=== PATIENT | male | born 1940 | race Hispanic/Latino ===

== ENCOUNTER 2020-02-15 08:43 | Inpatient (IN) | payer MEDICARE ==
[~2020-02-15] VITALS: Ht 170.2 cm; Wt 75.7 kg
[2020-02-15 09:22] LABS: BASOPHILS # (AUTO) 0.1 (0.0-0.1); BASOPHILS % 0.5 % (0.0-1.0); EOSINOPHILS % 0.1 % (0.0-6.0); HEMATOCRIT 42.5 % (38.2-49.6); HEMOGLOBIN 14.4 g/dL (14.0-18.0); LYMPHOCYTES # (AUTO) 1.2 (1.0-3.2); LYMPHOCYTES % 10.8 % (18.0-39.1); MEAN CORPUSCULAR HGB CONC 33.9 g/dL (31-35); MEAN CORPUSCULAR VOLUME 82.7 fL (81-99); MONOCYTES % 8.5 % (4.4-11.3); NEUTROPHILS % 79.6 % (38.7-80.0); PLATELET COUNT 439 x10e3/uL (140-360); RED BLOOD COUNT 5.14 x10e6/uL (4.3-5.7); RED CELL DISTRIBUTION WIDTH 13.3 % (11.7-14.4)
[2020-02-15] MEDS ORDERED: MONTELUKAST SOD10 MG PO (09:31)
[2020-02-15] MEDS ORDERED: ULTRACET TABLE1 EACH PO (09:31)
[2020-02-15] MEDS ORDERED: SIMVASTATIN40 MG PO (09:31)
[2020-02-15] MEDS ORDERED: OMEPRAZOLE40 MG (09:31)
[2020-02-15] MEDS ORDERED: ALENDRONATE SOD70 MG PO (09:31)
[2020-02-15] MEDS ORDERED: FLOMAX0.4 MG PO (09:31)
[2020-02-15] MEDS ORDERED: IBUPROFEN600 MG PO (09:31)
[2020-02-15] MEDS ORDERED: DICLOFENAC SODI75 MG (09:31)
[2020-02-15] MEDS ORDERED: ALLERGY RELIEF10 M4 (09:31)
[2020-02-15] MEDS ORDERED: FLUTICASONE PRO16 GM (09:31)
[2020-02-15 09:47] LABS: ALANINE AMINOTRANSFERASE 15 IU/L (0-55); ALBUMIN 3.8 g/dL (3.5-5.0); ALKALINE PHOSPHATASE 83 IU/L (40-150); ANION GAP 14.4 mmol/L (8-16); BLOOD UREA NITROGEN 7 mg/dL (7-26); BUN/CREATININE RATIO 11 (6-25); CALCIUM 9.6 mg/dL (8.4-10.2); CARBON DIOXIDE 26 mmol/L (22-29); CHLORIDE 85 mmol/L (98-107); CREATINE KINASE 46 IU/L (30-200); CREATININE, SERUM 0.66 mg/dL (0.72-1.25); EST GLOMERULAR FILTRATION RATE > 60 ML/MIN (60-); GLUCOSE 101 mg/dL (74-118); POTASSIUM 4.4 mmol/L (3.5-5.1); SODIUM 121 mmol/L (136-145)
--- NOTE | 2020-02-15 10:04 | Diagnostic Imaging Report ---
Exam: Head CT without contrast History: Weakness, headache Comparison studies: None Technique: Axial images were obtained from the skull base to the vertex. Coronal and sagittal images reconstructed from the axial data. Dose modulation, iterative reconstruction, and/or weight based adjustment of the mA/kV was utilized to reduce the radiation dose to as low as reasonably achievable. Radiation dose: Total DLP: 921.4 mGy*cm. Estimated effective dose: DLP x 0.015 Intravenous contrast: None Findings: Scalp: No abnormalities. Bones: No fractures, blastic or lytic lesions. Brain sulci: Mildly prom. Ventricles: Mild compensatory dilatation. No hydrocephalus. Extra-axial spaces: No masses, no fluid collection. Parenchyma: No mass, acute hemorrhage or acute cortical vascular insults. A few scattered hypodensities in the supratentorial white matter are nonspecific but most compatible with chronic small vessel ischemic changes. Sellar/suprasellar region: No abnormalities. Craniocervical junction: Patent foramen magnum. No Chiari one malformation. Additional findings: Atherosclerotic calcifications in the carotid siphons. Nonspecific scattered mucosal thickening in the partially imaged paranasal sinuses. IMPRESSION: No acute intracranial abnormalities. Chronic findings: 1. Mild generalized parenchymal volume loss. 2. Mild microvascular ischemic changes. Signed by: Dr. Devin Swain M.D. on 02/15/2020 10:01 AM
[2020-02-15] MEDS ORDERED: SODIUM CHLORIDE 0.9% 1000ML 1,000 ML IV SCH ×2 (10:15)
--- OUTSIDE RECORDS SUMMARY | 2020-02-15 10:23 | XMS REPORT | Continuity of Care Document ---
Author Author [facility] t Organization [facility] Address [address] [place] [phone] Phone Unavailable Care Team Providers Care Tractor Trailer Truck Driver Name Role Phone Flo COLBERT Attphyflo Unavailable Problems This patient has no known problems. Allergies, Adverse Reactions, Alerts This patient has no known allergies or adverse reactions. Medications This patient has no known medications. Procedures This patient has no known procedures. Results Test Description Test Time Test Comments Results Result Comments Source CT BRAIN WO 2020-02-15 09:57:00 [place] [address] Patient Name: KAISER VELASQUEZ MR #: [id number] : 1940 Age/Sex: 80/M Req #: [id number] Adm Physician: Ordered by: LAURA COLBERT DO Report #: [id number] Location: ER Room/Bed: Procedure: [id number] CT/CT BRAIN WO Exam Date: Exam Time: REPORT STATUS: Signed Exam: Head CT without contrast History: Weakness, headache Comparison studies: None Technique: Axial images were obtained from the skull base to the vertex. Coronal and sagittal images reconstructed from the axial data. Dose modulation, iterative reconstruction, and/or weight based adjustment of the mA/kV was utilized to reduce the radiation dose to as low as reasonably achievable. Radiation dose: Total DLP: 921.4 mGy*cm. Estimated effective dose: DLP x 0.015 Intravenous contrast: None Findings: Scalp: No abnormalities. Bones: No fractures, blastic or lytic lesions. Brain sulci: Mildly prom. Ventricles: Mild compensatory dilatation. No hydrocephalus. Extra-axial spaces: No masses, no fluid collection. Parenchyma: No mass, acute hemorrhage or acute cortical vascular insults. A few scattered hypodensities in the supratentorial white matter are nonspecific but most compatible with chronic small vessel ischemic changes. Sellar/suprasellar region: No abnormalities. Craniocervical junction: Patent foramen magnum. No Chiari one malformation. Additional findings: Atherosclerotic calcifications in the carotid siphons. Nonspecific scattered mucosal thickening in the partially imaged paranasal sinuses. IMPRESSION: No acute intracranial abnormalities. Chronic findings: 1. Mild generalized parenchymal volume loss. 2. Mild microvascular ischemic changes. Signed by: Dr. Myriam Sawin M.D. on 02/15/2020 10:01 AM Dictated By: MYRIAM SWAIN MD 1001 Transcribed By: HUANG on 02/15/20 1001 COPY TO: LAURA COLBERT DO
[2020-02-15 10:44] LABS: CLARITY,URINE CLEAR (CLEAR); COLOR,URINE YELLOW (YELLOW); LEUKOCYTE ESTERASE ,URINE NEGATIVE (NEGATIVE); NITRITE,URINE NEGATIVE (NEGATIVE); PROTEIN,URINE DIPSTICK NEGATIVE (NEGATIVE)
[2020-02-15 10:45] LABS: BACTERIA,URINE RARE /HPF; BILIRUBIN,URINE NEGATIVE (NEGATIVE); EPITHELIAL CELLS,URINE FEW /LPF; KETONES,URINE NEGATIVE (NEGATIVE); URINE UROBILINOGEN 1 mg/dL (0.2 - 1)
--- OUTSIDE RECORDS SUMMARY | 2020-02-15 10:50 | XMS REPORT | Continuity of Care Document ---
Author Author [facility] t Organization [facility] Address [address] [place] [id number] Phone Unavailable Care Team Providers Care Application Packaging Specialist Name Role Phone Flo COLBERT Attphyflo Unavailable Problems This patient has no known problems. Allergies, Adverse Reactions, Alerts This patient has no known allergies or adverse reactions. Medications This patient has no known medications. Procedures This patient has no known procedures. Results Test Description Test Time Test Comments Results Result Comments Source CT BRAIN WO 2020-02-15 09:57:00 [place] [address] Patient Name: KAISER VELASQUEZ MR #: [id number] : 1940 Age/Sex: 80/M Req #: [id number] Adm Physician: Ordered by: LAURA COLBERT DO Report #: [id number] Location: ER Room/Bed: Procedure: [id number] CT/CT BRAIN WO Exam Date: Exam Time: [...] microvascular ischemic changes. Signed by: Dr. Myriam Swain M.D. on 02/15/2020 10:01 AM Dictated By: MYRIAM SWAIN MD 1001 Transcribed By: HUANG on 02/15/20 1001 COPY TO: LAURA COLBERT DO
--- NOTE | 2020-02-15 11:05 | Emergency Department Note ---
History of Present Illnes History of Present Illness Chief Complaint: General Medicine Complaints History of Present Illness This is a 80 year old male arrived to the ED with generalized malaise and weakness for several days Historian: Patient, Family Member Arrival Mode: Car Racquet Maker Required: No Onset (how long ago): day(s) Onset quality: gradual Duration (how long): day(s) Timing of current episode: constant Progression: worsening Past Medical/Family History Physician Review I have reviewed the patient's past medical and family history. Any updates have been documented here. Past Medical History Recent Fever: No Clinical Suspicion of Infectio: No New/Unexplained Change in Ment: No Past Medical History: GERD, Hyperlipedemia Other Medical History: bph gerd allergies sinus Other Surgery: knee sx esophageal stricture back sx Social History Smoking Cessation: Former smoker Counseling Performed: No Alcohol Use: Occasional Any Illegal Drug Use: No Physically hurt or threatened: No Other Any Pre-Existing Lines (PICC,: No Review of Systems Review of Systems Constitutional: Reports as per HPI, Reports weakness, Reports other EENTM: Reports no symptoms Cardiovascular: Reports no symptoms Respiratory: Reports no symptoms Gastrointestinal: Reports no symptoms Genitourinary: Reports no symptoms Musculoskeletal: Reports no symptoms Integumentary: Reports no symptoms Neurological: Reports no symptoms Psychological: Reports no symptoms Endocrine: Reports no symptoms Hematological/Lymphatic: Reports no symptoms Physical Exam Related Data Allergies: Coded Allergies: No Known Allergies (Unverified , 02/15/20) Triage Vital Signs Vital Signs Date Time Temp Pulse Resp B/P (MAP) Pulse Ox O2 Delivery O2 Flow Rate FiO2 02/15/20 08:48 97.9 91 19 156/77 99 Room Air Vital signs reviewed: Yes Physical Exam CONSTITUTIONAL Constitutional: Present well-developed, Present well-nourished HENT HENT: Present normocephalic, Present atraumatic, Present oropharynx clear/moist, Present nose normal HENT L/R: Present left ext ear normal, Present right ext ear normal EYES Eyes: Reports PERRL, Reports conjunctivae normal NECK Neck: Present ROM normal PULMONARY Pulmonary: Present effort normal, Present breath sounds normal CARDIOVASCULAR Cardiovascular: Present regular rhythm, Present heart sounds normal, Present capillary refill normal, Present normal rate GASTROINTESTINAL Abdominal: Present soft, Present nontender, Present bowel sounds normal GENITOURINARY Genitourinary: Present exam deferred SKIN Skin: Present warm, Present dry MUSCULOSKELETAL Musculoskeletal: Present ROM normal NEUROLOGICAL Neurological: Present alert, Present oriented x 3, Present no gross motor or sensory deficits PSYCHOLOGICAL Psychological: Present mood/affect normal, Present judgement normal Results Laboratory Result Diagram: 02/15/20 0810 02/15/20 0810 Laboratory Laboratory Tests Test 02/15/20 08:10 White Blood Count 11.24 x10e3/uL (4.8-10.8) Red Blood Count 5.14 x10e6/uL (4.3-5.7) Hemoglobin 14.4 g/dL (14.0-18.0) Hematocrit 42.5 % (38.2-49.6) Mean Corpuscular Volume 82.7 fL (81-99) Mean Corpuscular Hemoglobin 28.0 pg (28-32) Mean Corpuscular Hemoglobin Concent 33.9 g/dL (31-35) Red Cell Distribution Width 13.3 % (11.7-14.4) Platelet Count 439 x10e3/uL (140-360) Neutrophils (%) (Auto) 79.6 % (38.7-80.0) Lymphocytes (%) (Auto) 10.8 % (18.0-39.1) Monocytes (%) (Auto) 8.5 % (4.4-11.3) Eosinophils (%) (Auto) 0.1 % (0.0-6.0) Basophils (%) (Auto) 0.5 % (0.0-1.0) Neutrophils # (Auto) 9.0 (2.1-6.9) Lymphocytes # (Auto) 1.2 (1.0-3.2) Monocytes # (Auto) 1.0 (0.2-0.8) Eosinophils # (Auto) 0.0 (0.0-0.4) Basophils # (Auto) 0.1 (0.0-0.1) Absolute Immature Granulocyte (auto 0.06 x10e3/uL (0-0.1) Sodium Level 121 mmol/L (136-145) Potassium Level 4.4 mmol/L (3.5-5.1) Chloride Level 85 mmol/L (98-107) Carbon Dioxide Level 26 mmol/L (22-29) Anion Gap 14.4 mmol/L (8-16) Blood Urea Nitrogen 7 mg/dL (7-26) Creatinine 0.66 mg/dL (0.72-1.25) Estimat Glomerular Filtration Rate > 60 ML/MIN (60-) BUN/Creatinine Ratio 11 (6-25) Glucose Level 101 mg/dL (74-118) Calcium Level 9.6 mg/dL (8.4-10.2) Total Bilirubin 0.5 mg/dL (0.2-1.2) Aspartate Amino Transf (AST/SGOT) 18 IU/L (5-34) Alanine Aminotransferase (ALT/SGPT) 15 IU/L (0-55) Alkaline Phosphatase 83 IU/L (40-150) Creatine Kinase 46 IU/L (30-200) Creatine Kinase MB 2.10 ng/mL (0-5.0) Troponin I < 0.001 ng/mL (0-0.300) Total Protein 7.8 g/dL (6.5-8.1) Albumin 3.8 g/dL (3.5-5.0) Globulin 4.0 g/dL (2.3-3.5) Albumin/Globulin Ratio 1.0 (0.8-2.0) Lab results reviewed: Yes Imaging Imaging results reviewed: Yes Impressions IMPRESSION: No acute intracranial abnormalities. Chronic findings: 1. Mild generalized parenchymal volume loss. 2. Mild microvascular ischemic changes. Procedures 12 Lead ECG Interpretation ECG Interpretation : ECG: ECG 1 Racquet Maker: Interpreted by ED physician Prior ECG tracings: reviewed Rhythm: sinus rhythm Rate: normal QRS axis: normal ST segments normal: Yes T waves normal: Yes Clinical Impression: normal ECG Assessment & Plan Medical Decision Making MDM 80-year-old male arrives to the ED with complaints of generalized weakness and malaise. Sodium noted to be 125, IV hydration- admitted for labs and re-eval. Assessment & Plan Final Impression: (1) Hyponatremia Depart Disposition: ADMITTED Last Vital Signs Date Time Temp Pulse Resp B/P (MAP) Pulse Ox O2 Delivery O2 Flow Rate FiO2 02/15/20 09:31 88 24 190/89 100 Room Air 02/15/20 08:48 97.9 Home Meds Reported Medications Fluticasone Propionate (FLUTICASONE PROPIONATE) 16 Gm [place].susp 02/15/20 Diclofenac Sodium (DICLOFENAC SODIUM) 75 Mg Tablet.dr THERAPEUTICALLY SUBSTITUTED WITH IBUPROFEN 600MG 02/15/20 Ibuprofen (IBUPROFEN) 600 Mg Tablet, 800 MG PO Q8HR for pain 02/15/20 Cetirizine HCl (Allergy Relief) 10 Mg Capsule 02/15/20 Tramadol Hcl/Acetaminophen (ULTRACET TABLET) 1 Each Tablet, PO PRN for Mild Pain (1-3) or Fever>100.8 02/15/20 Montelukast Sodium (MONTELUKAST SODIUM) 10 Mg Tablet, 10 MG PO DAILY, #30 TAB 02/15/20 Omeprazole (OMEPRAZOLE) 40 Mg Capsule.dr 02/15/20 Simvastatin (SIMVASTATIN) 40 Mg Tablet, 40 MG PO 2100, #30 TAB 02/15/20 Tamsulosin Hcl* (FLOMAX*) 0.4 Mg Cap, 0.4 MG PO DAILY, #30 CAP 02/15/20 Alendronate Sodium (ALENDRONATE SODIUM) 70 Mg Tablet, PO 02/15/20 LAURA COLBERT DO Feb 15, 2020 11:05
[2020-02-15] MEDS ORDERED: IOPAMIDOL 370 MG/ML 200 ML INFUS..BTL INJ ONE (11:19)
[2020-02-15] MEDS ORDERED: SODIUM CHLORIDE 0.9% 50ML 0 ML ONE (11:19)
--- NOTE | 2020-02-15 11:32 | Diagnostic Imaging Report ---
EXAMINATION: CHEST SINGLE (PORTABLE) INDICATION: Weakness COMPARISON: None FINDINGS: LINES/TUBES:None LUNGS:The lungs are well-inflated. Left basilar opacity. PLEURA:Likely small left pleural effusion. MEDIASTINUM:The cardiomediastinal silhouette appears normal in size and shape. BONES/SOFT TISSUES:No acute osseous injury. ABDOMEN:No free air under the diaphragm. IMPRESSION: Likely small left pleural effusion. Left basilar opacity, most likely subsegmental atelectasis. Signed by: Phu Camarillo MD on 02/15/2020 11:29 AM
--- NOTE | 2020-02-15 13:12 | Diagnostic Imaging Report ---
EXAMINATION: CHEST SINGLE (PORTABLE) INDICATION: Weakness COMPARISON: Chest radiograph 02/15/2020 FINDINGS: LINES/TUBES:EKG leads overlie the chest. LUNGS:The lungs are moderately inflated. Left basilar opacity. PLEURA:No pleural effusion or pneumothorax. MEDIASTINUM:The cardiomediastinal silhouette appears normal in size and shape. BONES/SOFT TISSUES:No acute osseous injury. ABDOMEN:No free air under the diaphragm. IMPRESSION: Left basilar opacities, most likely subsegmental atelectasis. Signed by: Phu Camarillo MD on 02/15/2020 1:08 PM
[2020-02-15 13:22] VITALS: BP 180/84
[2020-02-15 13:37] VITALS: BP 180/84
[2020-02-15] MEDS: TRAMADOL/APAP 37.5MG-325MG TAB PO PRN (13:37)
[2020-02-15] MEDS: LOSARTAN POTASSIUM 100 MG TAB PO SCH (15:04)
[2020-02-15 15:47] VITALS: BP 183/81
[2020-02-15 17:12] LABS: CREATINE KINASE MB 1.7 ng/mL (0-5.0)
[2020-02-15 18:09] VITALS: BP 148/75
[2020-02-15] MEDS ORDERED: ONDANSETRON HCL INJ 2MG/ML 2ML 2 MG/ML VIAL IV PRN (18:45)
--- NOTE | 2020-02-15 19:26 | NUR ---
RECEIVED PT IN BED OX3 ,DENIES PAIN .LEFT AC 20 NS AT 75 CC/HR .CALL LIGHT WITH IN REACH ,CONTINUE TO MONITOR
[2020-02-15] MEDS ORDERED: CEFTRIAXONE SOD 1 GM/NS 50 ML 50 ML IV SCH (19:45)
[2020-02-15 20:00] VITALS: BP 151/90
--- NOTE | 2020-02-15 20:22 | NUR ---
CALLED TO DR NERI AND NOTIFIED NA LEVEL AND NO NEW ORDER ,CONTINUE THE SAME FLUID .
[2020-02-15] MEDS: TRAVOPROST(OPTH) 2.5 ML BTL OP SCH (21:00)
[2020-02-15] MEDS: TAMSULOSIN HCL 0.4 MG CAP PO SCH (21:11)
[2020-02-15] MEDS: SIMVASTATIN 40 MG TAB PO SCH (21:12)
[2020-02-15] MEDS: ACETAMINOPHEN 325 MG TAB PO PRN (21:14)
[2020-02-15] MEDS: MELATONIN 5 MG TABLET PO PRN (21:14)
[2020-02-16] VITALS (8 sets, daily range): BP systolic 124–180; BP diastolic 49–85
[2020-02-16] MEDS: CEFTRIAXONE SOD 1 GM/NS 50 ML 50 ML IV SCH (00:43)
--- NOTE | 2020-02-16 01:07 | Consultation ---
DATE OF CONSULTATION: 02/15/2020 Nephrology Consultation REASON FOR CONSULTATION: Hyponatremia. HISTORY OF PRESENT ILLNESS: An 80-year-old male, who came into the ED with complaints of generalized weakness and malaise, ongoing for the last several days. The patient was found to have a low sodium level, prompting Nephrology consultation. The patient reportedly is taking hydrochlorothiazide at home. He has been very weak over the last several days. The patient denies any hcka-vob-swnoalb medications. The patient was seen and evaluated at bedside on the medical floor. He is currently doing well with no other issues at this time. REVIEW OF SYSTEMS: Pertinent positives; generalized weakness, malaise, and lightheadedness. The rest of 14-point review of systems have been reviewed with the patient and are negative. ALLERGIES: NO KNOWN DRUG ALLERGIES. MEDICATIONS: Alendronate, Fluticasone, ibuprofen, Singulair, omeprazole, tamsulosin, and simvastatin. PAST MEDICAL HISTORY: Hyperlipidemia, BPH, acid reflux. PAST SURGICAL HISTORY: Knee surgery, esophageal strictures, back surgery in the past. FAMILY HISTORY: Unknown. SOCIAL HISTORY: Former smoker. No drugs. No alcohol. PHYSICAL EXAMINATION: VITAL SIGNS: Temperature is 98.3, pulse 108, respiratory rate is 18, blood pressure is 151/90, pulse ox 96% on room air. GENERAL: In no acute distress. Alert and oriented x3. Cooperative on examination. HEENT: Head is normocephalic and atraumatic. Eyes; pupils are equal, round, and reactive to light bilaterally. Extraocular movements intact bilaterally. Throat; no evidence of erythema or exudates in the posterior pharynx. Has poor dentition. NECK: Supple. Range of motion. PULMONARY: Clear to auscultation bilaterally. No wheezing, rales, or rhonchi. No crackles appreciated. CARDIOVASCULAR: Positive S1, S2. No murmurs, rubs, or gallops appreciated. ABDOMEN: Soft, nondistended, and nontender to palpation. Bowel sounds present. MUSCULOSKELETAL: Strength is 5/5 throughout. No evidence of any muscle deficits on examination. No weakness appreciated. NEUROLOGIC: Cranial nerves II through XII grossly intact. No evidence of any neurological deficits on exam. SKIN: Intact. Warm to touch. Good cap refill. PSYCHIATRIC: Normal affect and mood. EXTREMITIES: No edema. Good range of motion throughout. LABORATORY FINDINGS: Show white count 11, hemoglobin 14, hematocrit 42, platelets of 439. Chemistry; sodium was 121, potassium 4.4, chloride 85, bicarbonate 26, anion gap of 14, BUN is 7 and creatinine 0.66. LFTs within normal range. Troponins were negative. Repeat sodium x3 was 121. IMAGING STUDIES: Chest x-ray shows left basilar opacity, most likely subsegmental atelectasis. CT brain was found to be negative for any acute intracranial abnormality. IMPRESSION: Hypovolemic hypotonic hyponatremia, likely due to underlying hydrochlorothiazide and dehydration. PLAN: At this time from a Renal standpoint, his sodium after three times was 121. I will go ahead and just discontinue normal saline and add sodium chloride tablets 2 g x1. Get repeat labs in the morning. Volume restriction 1.2 L in a given day. to nurse has been written for sodium levels to be called to me with the results. Thank you so much for this consultation. We will continue to follow with you. MD CORINA Bryan/MODL /[id number]
[2020-02-16] MEDS: ACETAMINOPHEN/CODEINE 300MG - 30MG TAB PO PRN (04:58)
[2020-02-16 05:14] LABS: BASOPHILS % 0.3 % (0.0-1.0); EOSINOPHILS % 0.2 % (0.0-6.0); HEMATOCRIT 36.8 % (38.2-49.6); HEMOGLOBIN 12.3 g/dL (14.0-18.0); LYMPHOCYTES # (AUTO) 1.7 (1.0-3.2); LYMPHOCYTES % 14.2 % (18.0-39.1); MEAN CORPUSCULAR HEMOGLOBIN 27.9 pg (28-32); MEAN CORPUSCULAR HGB CONC 33.4 g/dL (31-35); MEAN CORPUSCULAR VOLUME 83.4 fL (81-99); MONOCYTES # (AUTO) 1.1 (0.2-0.8); MONOCYTES % 8.7 % (4.4-11.3); NEUTROPHILS # (AUTO) 9.3 (2.1-6.9); NEUTROPHILS % 75.8 % (38.7-80.0); PLATELET COUNT 336 x10e3/uL (140-360); RED BLOOD COUNT 4.41 x10e6/uL (4.3-5.7); RED CELL DISTRIBUTION WIDTH 13.5 % (11.7-14.4)
[2020-02-16 05:33] LABS: CREATINE KINASE 45 IU/L (30-200)
--- NOTE | 2020-02-16 06:05 | NUR ---
PT C/O OF HEADACHE AND GIVEN ORDERED PAIN MEDICATION.PT RESTING .CALL LIGHT WITH IN REACH ,CONTINUE TO MONITOR
[2020-02-16 06:16] LABS: ALANINE AMINOTRANSFERASE 12 IU/L (0-55); ALKALINE PHOSPHATASE 63 IU/L (40-150); BLOOD UREA NITROGEN 8 mg/dL (7-26); BUN/CREATININE RATIO 14 (6-25); CALCIUM 8.5 mg/dL (8.4-10.2); CARBON DIOXIDE 21 mmol/L (22-29); CHLORIDE 90 mmol/L (98-107); CREATININE, SERUM 0.57 mg/dL (0.72-1.25); EST GLOMERULAR FILTRATION RATE > 60 ML/MIN (60-); GLUCOSE 99 mg/dL (74-118); SODIUM 123 mmol/L (136-145)
--- NOTE | 2020-02-16 07:22 | NUR ---
BED SIDE REPORT GIVEN TO THE ONCOMING NURSE
[2020-02-16] MEDS: TIMOLOL MALEATE 0.5% OPTH DRP 5 ML BTL OP SCH (08:51)
[2020-02-16] MEDS: FAMOTIDINE 20 MG TAB PO SCH ×2 (08:51→16:33)
[2020-02-16] MEDS: LOSARTAN POTASSIUM 100 MG TAB PO SCH (08:52)
[2020-02-16] MEDS ORDERED: TAMSULOSIN HCL 0.4 MG CAP PO SCH (09:00)
[2020-02-16] MEDS ORDERED: SODIUM CHLORIDE 1 GM TAB PO SCH (10:15)
[2020-02-16] MEDS: SODIUM CHLORIDE 0.9% 1000ML 1,000 ML IV SCH ×2 (10:38→13:08)
[2020-02-16] MEDS: ACETAMINOPHEN 325 MG TAB PO PRN (11:08)
--- NOTE | 2020-02-16 11:27 | NUR ---
Received order for home health. Spoke with pt's daughter Katelyn. She declined home health at this time since they are not letting anyone into the house right now. She states that the family can help pt if needed. CM informed her that if the family decides pt needs home health at a later time, he can follow up with his PCP and HH can be arranged thru their office. PT is recommending RW for pt. Daughter states pt has a walker at home already. IMM letter discussed. She verbalized understanding. Signed copy placed in chart. Ukrainian copy left in pt's room.
--- NOTE | 2020-02-16 19:20 | NUR ---
Bedside shift report completed with morning nurse. Pt alert and oriented to name, lying in bed HOB 30 degrees. Pt denies pain at this time. Bed low and locked. Call light within reach.
[2020-02-16] MEDS ORDERED: SODIUM CHLORIDE 1 GM TAB PO ONE ×2 (19:55)
[2020-02-16] MEDS: SIMVASTATIN 40 MG TAB PO SCH (21:00)
[2020-02-16] MEDS: TAMSULOSIN HCL 0.4 MG CAP PO SCH (21:00)
[2020-02-16] MEDS: TRAVOPROST(OPTH) 2.5 ML BTL OP SCH (21:00)
--- NOTE | 2020-02-16 22:32 | Progress Note ---
DATE: 02/16/2020 Nephrology Progress Note SUBJECTIVE: The patient is doing well today with no complaints. PHYSICAL EXAMINATION: VITAL SIGNS: Temperature is 97.6, pulse 88, respiratory rate is 20, blood pressure 165/85, and pulse ox 97% on room air. GENERAL: Not in acute distress. Alert and oriented x3. Cooperative on examination. HEENT: Head; normocephalic, atraumatic. Eyes; pupils are equal, round, and reactive to light bilaterally. Extraocular movements intact bilaterally. Throat; no evidence of erythema or exudates in the posterior pharynx. Has poor dentition. NECK: Supple. Good range of motion. PULMONARY: Clear to auscultation bilaterally. No wheezing, no rales, no rhonchi, no crackles appreciated. CARDIOVASCULAR: Positive S1 and S2. No murmurs, rubs, or gallops appreciated. ABDOMEN: Soft, nondistended, and nontender to palpation. Bowel sounds present. MUSCULOSKELETAL: Strength is 5/5 throughout. No evidence of any muscle deficits on examination. No weakness appreciated. NEUROLOGIC: Cranial nerves 2 through 12 grossly intact. No evidence of any neurological deficits on exam. SKIN: Intact. Warm to touch. Good cap refill. PSYCHIATRIC: Normal affect and mood. EXTREMITIES: No edema. Good range of motion throughout. LABORATORY FINDINGS: Show white count 12, hemoglobin 12, hematocrit is 36, and platelets of 336. Chemistry; sodium currently 123. Uric acid was 1.8. Serum osmolality is pending. The rest of the electrolytes are stable. Coronavirus not detected. MICROBIOLOGY: Urine culture shows gram-negative bacillus. IMAGING STUDIES: Nothing new. IMPRESSION: Hypovolemic hypotonic hyponatremia secondary to underlying hydrochlorothiazide and dehydration. PLAN: At this time, sodium level is 123. He is still on low-dose fluids. I have given him sodium chloride tablets twice today. He is on volume restriction 1.2 L in a given day. He has a repeat sodium at 11 p.m. this evening. I discussed the plan of care with nursing staff. We will monitor him very closely. Overnight, we will probably discontinue the IV fluids once the repeat sodium level is back. MD CORINA Bryan/MODL /[id number]
[2020-02-17] VITALS (8 sets, daily range): BP systolic 139–179; BP diastolic 60–87
[2020-02-17] MEDS: CEFTRIAXONE SOD 1 GM/NS 50 ML 50 ML IV SCH (00:31)
[2020-02-17] MEDS: MELATONIN 5 MG TABLET PO PRN (00:43)
[2020-02-17] MEDS: HYDRALAZINE HCL 20 MG/ML VIAL IV PRN (00:43)
[2020-02-17] MEDS: ACETAMINOPHEN/CODEINE 300MG - 30MG TAB PO PRN ×2 (03:02→12:14)
[2020-02-17 05:09] LABS: BASOPHILS # (AUTO) 0.1 (0.0-0.1); BASOPHILS % 0.6 % (0.0-1.0); EOSINOPHILS % 0.2 % (0.0-6.0); HEMOGLOBIN 11.8 g/dL (14.0-18.0); LYMPHOCYTES # (AUTO) 1.3 (1.0-3.2); LYMPHOCYTES % 12.6 % (18.0-39.1); MEAN CORPUSCULAR HEMOGLOBIN 28.1 pg (28-32); MEAN CORPUSCULAR HGB CONC 33.7 g/dL (31-35); MEAN CORPUSCULAR VOLUME 83.3 fL (81-99); MONOCYTES # (AUTO) 0.9 (0.2-0.8); MONOCYTES % 8.5 % (4.4-11.3); NEUTROPHILS # (AUTO) 8.2 (2.1-6.9); NEUTROPHILS % 77.5 % (38.7-80.0); PLATELET COUNT 323 x10e3/uL (140-360); RED CELL DISTRIBUTION WIDTH 13.5 % (11.7-14.4)
[2020-02-17 05:34] LABS: ALANINE AMINOTRANSFERASE 12 IU/L (0-55); ALKALINE PHOSPHATASE 60 IU/L (40-150); ANION GAP 14.5 mmol/L (8-16); BLOOD UREA NITROGEN 7 mg/dL (7-26); BUN/CREATININE RATIO 12 (6-25); CALCIUM 8.5 mg/dL (8.4-10.2); CARBON DIOXIDE 22 mmol/L (22-29); CHLORIDE 92 mmol/L (98-107); CREATININE, SERUM 0.59 mg/dL (0.72-1.25); EST GLOMERULAR FILTRATION RATE > 60 ML/MIN (60-); GLUCOSE 101 mg/dL (74-118); POTASSIUM 4.5 mmol/L (3.5-5.1); SODIUM 124 mmol/L (136-145)
[2020-02-17] MEDS: LOSARTAN POTASSIUM 100 MG TAB PO SCH (08:26)
[2020-02-17] MEDS: FAMOTIDINE 20 MG TAB PO SCH ×2 (08:26→16:29)
[2020-02-17] MEDS: TRAMADOL/APAP 37.5MG-325MG TAB PO PRN (08:26)
[2020-02-17] MEDS ORDERED: SODIUM CHLORIDE 1 GM TAB PO ONE (09:00)
[2020-02-17] MEDS: TIMOLOL MALEATE 0.5% OPTH DRP 5 ML BTL OP SCH (09:00)
[2020-02-17] MEDS ORDERED: SODIUM CHLORIDE 1 GM TAB PO NR ×2 (14:45→16:15)
[2020-02-17] MEDS: SODIUM CHLORIDE 0.9% 1000ML 1,000 ML IV SCH (16:29)
--- NOTE | 2020-02-17 19:46 | Progress Note ---
DATE: 02/17/2020 Nephrology Progress Note SUBJECTIVE: The patient had a headache earlier this afternoon, but now it is all resolved. His sodium is still at 125. No overnight events. LABORATORY FINDINGS: Show sodium of 125, potassium 4.5, chloride 92, bicarb 22, anion gap of 14. BUN is 7, creatinine is 0.59, glucose is 101. LFTs within normal range. TSH is 1.1. IMAGING STUDIES: None. PHYSICAL EXAMINATION: VITAL SIGNS: Temperature is 98.3, pulse 86, respiratory rate is 20, blood pressure 139/60, pulse ox 96% on room air. GENERAL: Not in acute distress. Alert and oriented x3. Cooperative on examination. HEENT: Head; normocephalic, atraumatic. Eyes; pupils are equal, round, and reactive to light bilaterally. Extraocular movements intact bilaterally. Throat; no evidence of erythema or exudates in the posterior pharynx. Has poor dentition. NECK: Supple. Good range of motion. PULMONARY: Clear to auscultation bilaterally. No wheezing, no rales, no rhonchi, no crackles appreciated. CARDIOVASCULAR: Positive S1 and S2. No murmurs, rubs, or gallops appreciated. GI: Abdomen is soft, nondistended, and nontender to palpation. Bowel sounds present. MUSCULOSKELETAL: Strength is 5/5 throughout. No evidence of any muscle deficits on examination. No weakness appreciated. NEUROLOGIC: Cranial nerves 2 through 12 are grossly intact. No evidence of any neurological deficits on exam. SKIN: Intact. Warm to touch. Good cap refill. PSYCHIATRIC: Normal affect and mood. EXTREMITIES: No edema. Good range of motion throughout. IMPRESSION: Hypovolemic hypotonic hyponatremia, secondary to underlying hydrochlorothiazide dehydration. PLAN: At this time, sodium level is 125, slowly gradually increasing and improving, but very slow. He did receive sodium chloride tabs this afternoon. Continue with IV fluids, volume restriction. Repeat sodium level at 7:00 p.m. Discussed with nursing staff to call me with results. MD CORINA Bryan/MODL /[id number]
--- NOTE | 2020-02-17 20:45 | NUR ---
Blood specimen sent to lab for analysis of sodium level.
[2020-02-17] MEDS: DOCUSATE SODIUM 100 MG CAP PO SCH (20:52)
[2020-02-17] MEDS: SIMVASTATIN 40 MG TAB PO SCH (20:52)
[2020-02-17] MEDS: TRAVOPROST(OPTH) 2.5 ML BTL OP SCH (20:52)
[2020-02-17] MEDS: TAMSULOSIN HCL 0.4 MG CAP PO SCH (20:52)
--- NOTE | 2020-02-17 21:27 | NUR ---
Dr. Cunha notified of current sodium level of 127. New order received for BMP in am (02/17).
[2020-02-18] VITALS (8 sets, daily range): BP systolic 114–178; BP diastolic 63–84
[2020-02-18] MEDS: CEFTRIAXONE SOD 1 GM/NS 50 ML 50 ML IV SCH ×2 (00:18→23:58)
[2020-02-18] MEDS: ACETAMINOPHEN/CODEINE 300MG - 30MG TAB PO PRN ×2 (02:03→09:46)
[2020-02-18] MEDS: HYDRALAZINE HCL 20 MG/ML VIAL IV PRN ×2 (06:31→12:38)
[2020-02-18 06:38] LABS: BASOPHILS # (AUTO) 0.1 (0.0-0.1); BASOPHILS % 0.7 % (0.0-1.0); EOSINOPHILS % 0.2 % (0.0-6.0); HEMATOCRIT 34.9 % (38.2-49.6); HEMOGLOBIN 11.2 g/dL (14.0-18.0); LYMPHOCYTES # (AUTO) 1.6 (1.0-3.2); LYMPHOCYTES % 18.5 % (18.0-39.1); MEAN CORPUSCULAR HEMOGLOBIN 27.3 pg (28-32); MEAN CORPUSCULAR HGB CONC 32.1 g/dL (31-35); MEAN CORPUSCULAR VOLUME 85.1 fL (81-99); MONOCYTES # (AUTO) 0.7 (0.2-0.8); MONOCYTES % 7.6 % (4.4-11.3); NEUTROPHILS # (AUTO) 6.4 (2.1-6.9); NEUTROPHILS % 72.5 % (38.7-80.0); PLATELET COUNT 352 x10e3/uL (140-360); RED CELL DISTRIBUTION WIDTH 13.9 % (11.7-14.4)
--- NOTE | 2020-02-18 07:00 | NUR ---
Patient resting comfortably. AAO x 3. No acute distress noted. Shift report given to oncoming nurse regarding patient's status.
[2020-02-18 07:07] LABS: ALANINE AMINOTRANSFERASE 13 IU/L (0-55); ALKALINE PHOSPHATASE 62 IU/L (40-150); ANION GAP 14.1 mmol/L (8-16); BLOOD UREA NITROGEN 5 mg/dL (7-26); BUN/CREATININE RATIO 9 (6-25); CALCIUM 8.5 mg/dL (8.4-10.2); CARBON DIOXIDE 21 mmol/L (22-29); CHLORIDE 96 mmol/L (98-107); CREATININE, SERUM 0.58 mg/dL (0.72-1.25); EST GLOMERULAR FILTRATION RATE > 60 ML/MIN (60-); GLUCOSE 95 mg/dL (74-118); POTASSIUM 4.1 mmol/L (3.5-5.1); SODIUM 127 mmol/L (136-145)
[2020-02-18] MEDS: FLUTICASONE PROPIONATE NASAL SPRAY NS SCH (09:45)
[2020-02-18] MEDS: FAMOTIDINE 20 MG TAB PO SCH ×2 (09:45→16:07)
[2020-02-18] MEDS: LOSARTAN POTASSIUM 100 MG TAB PO SCH (09:46)
[2020-02-18] MEDS: DOCUSATE SODIUM 100 MG CAP PO SCH ×2 (09:46→16:07)
[2020-02-18] MEDS: TIMOLOL MALEATE 0.5% OPTH DRP 5 ML BTL OP SCH (09:46)
[2020-02-18] MEDS ORDERED: SODIUM CHLORIDE 1 GM TAB PO ONE ×2 (11:30→19:30)
[2020-02-18] MEDS ORDERED: BISACODYL 5 MG TAB EC PO ONE ×2 (16:00)
--- NOTE | 2020-02-18 19:22 | NUR ---
Patient received lying in bed. AAO x 3. Patient had no complaints of pain. Respirations even and non -labored. IVF infusing at 100cc/hr. Safety measures in place. Patient instructed to call for assistance when needed. Call light within reach.
[2020-02-18] MEDS: SODIUM CHLORIDE 0.9% 1000ML 1,000 ML IV SCH (20:37)
[2020-02-18] MEDS: TRAVOPROST(OPTH) 2.5 ML BTL OP SCH (20:38)
[2020-02-18] MEDS: SIMVASTATIN 40 MG TAB PO SCH (20:38)
[2020-02-18] MEDS: TAMSULOSIN HCL 0.4 MG CAP PO SCH (20:38)
--- NOTE | 2020-02-18 21:05 | Progress Note ---
DATE: 02/18/2020 Nephrology Progress Note SUBJECTIVE: The patient's sodium level is still 127. He is doing well with no complaints. PHYSICAL EXAMINATION: VITAL SIGNS: Temperature is 98, pulse 95, respiratory rate is 17, blood pressure 115/84, pulse ox 99% on room air. GENERAL: No acute distress. Alert and oriented x3. He is cooperative on examination. HEENT: Head is normocephalic and atraumatic. Eyes; pupils are equal, round, and reactive to light bilaterally. Extraocular movements intact bilaterally. Throat, no evidence of any erythema or exudates in the posterior pharynx. Has poor dentition. NECK: Supple. Good range of motion. PULMONARY: Clear to auscultation bilaterally. No wheezing, rales, or rhonchi. No crackles appreciated. CARDIOVASCULAR: Positive S1 and S2. No murmurs, rubs, or gallops appreciated. ABDOMEN: Soft, nondistended, nontender to palpation. Bowel sounds present. MUSCULOSKELETAL: Strength is 5/5 throughout. No evidence of muscle deficits on examination. No weakness appreciated. NEUROLOGICAL: Cranial nerves II through XII grossly intact. No evidence of any neurological deficits on exam. SKIN: Intact. Warm to touch. Good cap refill. PSYCHIATRIC: Normal affect and mood. EXTREMITIES: No edema. Good range of motion throughout. LABORATORY DATA: Labs show white count 8.7, hemoglobin 11, hematocrit is 34.9, and platelets of 352. Chemistry; sodium was 127, potassium is 4.1, chloride 96, bicarbonate is 21, anion gap of 14, BUN is 5, creatinine is 0.58, glucose is 95. A1c was 5.6. LFTs were normal. MICROBIOLOGY: Noted E. coli in the urine. IMAGING STUDIES: Nothing new. IMPRESSION: Hypovolemic hypotonic hyponatremia secondary to underlying hydrochlorothiazide and underlying dehydration. PLAN: At this time, his sodium level is slowly gradually improving. It is 127 today. I did increase the normal saline to 100 mL an hour. Given additional dose of 2 g of sodium chloride tablets now. He did receive salt tablets this morning and this afternoon. Repeat sodium level at 11:00 p.m. to nurse has been ordered for them to call me tonight with the sodium result. We will get morning labs as well. MD CORINA Bryan/MODL /[id number]
--- NOTE | 2020-02-18 23:44 | NUR ---
Dr. Cunha notified of current sodium level of 128. New order received to reduce Normal Saline (NS) administration from 100 cc/hr to 75 cc/hr.
[2020-02-19] VITALS (8 sets, daily range): BP systolic 132–174; BP diastolic 71–93
[2020-02-19] MEDS: HYDRALAZINE HCL 20 MG/ML VIAL IV PRN ×2 (01:37→16:09)
[2020-02-19] MEDS: SODIUM CHLORIDE 0.9% 1000ML 1,000 ML IV SCH ×2 (05:41→10:20)
[2020-02-19] MEDS: ACETAMINOPHEN 325 MG TAB PO PRN (05:51)
[2020-02-19 06:37] LABS: BASOPHILS % 0.4 % (0.0-1.0); EOSINOPHILS % 0.4 % (0.0-6.0); HEMATOCRIT 34.4 % (38.2-49.6); HEMOGLOBIN 11.5 g/dL (14.0-18.0); LYMPHOCYTES # (AUTO) 1.3 (1.0-3.2); LYMPHOCYTES % 12.2 % (18.0-39.1); MEAN CORPUSCULAR HEMOGLOBIN 29.1 pg (28-32); MEAN CORPUSCULAR HGB CONC 33.4 g/dL (31-35); MEAN CORPUSCULAR VOLUME 87.1 fL (81-99); MONOCYTES # (AUTO) 0.9 (0.2-0.8); MONOCYTES % 8.3 % (4.4-11.3); NEUTROPHILS % 78.3 % (38.7-80.0); PLATELET COUNT 289 x10e3/uL (140-360); RED BLOOD COUNT 3.95 x10e6/uL (4.3-5.7)
[2020-02-19 06:56] LABS: ALANINE AMINOTRANSFERASE 13 IU/L (0-55); ALBUMIN/GLOBULIN RATIO 0.9 (0.8-2.0); ALKALINE PHOSPHATASE 59 IU/L (40-150); ANION GAP 12.9 mmol/L (8-16); BLOOD UREA NITROGEN 8 mg/dL (7-26); BUN/CREATININE RATIO 14 (6-25); CALCIUM 8.4 mg/dL (8.4-10.2); CARBON DIOXIDE 22 mmol/L (22-29); CHLORIDE 95 mmol/L (98-107); CREATININE, SERUM 0.56 mg/dL (0.72-1.25); EST GLOMERULAR FILTRATION RATE > 60 ML/MIN (60-); GLUCOSE 88 mg/dL (74-118); POTASSIUM 3.9 mmol/L (3.5-5.1); SODIUM 126 mmol/L (136-145)
--- NOTE | 2020-02-19 07:00 | NUR ---
BEDSIDE SHIFT REPORT RECEIVED FROM THE STEWARD/STEWARDESS SMOKE ROOM RN. EDUCATED PT ABOUT FALL PRECAUTIONS. PT VERBALIZED UNDERSTANDING. BED IS LOW AND LOCKED. SIDE RAILS X2. CALL LIGHT WITH IN EASY REACH. ALL SAFETY MEASURES IN PLACE. PT DENIES NEEDS AT THIS TIME.
--- NOTE | 2020-02-19 07:15 | NUR ---
PAGEPaula NERI AND REPORTED SODIUM LEVEL 126.
[2020-02-19] MEDS: FAMOTIDINE 20 MG TAB PO SCH ×2 (07:59→16:09)
[2020-02-19] MEDS: LOSARTAN POTASSIUM 100 MG TAB PO SCH (07:59)
[2020-02-19] MEDS: DOCUSATE SODIUM 100 MG CAP PO SCH ×2 (07:59→16:09)
[2020-02-19] MEDS: ACETAMINOPHEN/CODEINE 300MG - 30MG TAB PO PRN (08:03)
[2020-02-19] MEDS: TIMOLOL MALEATE 0.5% OPTH DRP 5 ML BTL OP SCH (08:11)
[2020-02-19] MEDS: FLUTICASONE PROPIONATE NASAL SPRAY NS SCH (08:11)
[2020-02-19] MEDS ORDERED: CITRATE OF MAGNESIA 300ML BOTTLE PO ONE (12:00)
[2020-02-19] MEDS ORDERED: TOLVAPTAN 15 MG TAB PO ONE (13:45)
[2020-02-19] MEDS ORDERED: ONDANSETRON HCL 4 MG ORAL DISINTEGRATING TAB PO PRN (17:30)
--- NOTE | 2020-02-19 18:44 | NUR ---
PAGEPaula NERI AND REPORTED THE SODIUM LEVEL 130.
--- NOTE | 2020-02-19 19:00 | NUR ---
BEDSIDE SHIFT REPORT GIVEN TO THE CIRCULATION LIBRARIAN RN. PT DENIED FURTHER NEEDS.
--- NOTE | 2020-02-19 19:20 | NUR ---
Patient received lying in bed. AAO x 3. No acute distress noted. Call light within reach.
[2020-02-19] MEDS: TRAVOPROST(OPTH) 2.5 ML BTL OP SCH (20:47)
[2020-02-19] MEDS: TAMSULOSIN HCL 0.4 MG CAP PO SCH (20:47)
[2020-02-19] MEDS: SIMVASTATIN 40 MG TAB PO SCH (20:47)
[2020-02-20] VITALS: BP 149/80
[2020-02-20] MEDS: CEFTRIAXONE SOD 1 GM/NS 50 ML 50 ML IV SCH (00:50)
--- NOTE | 2020-02-20 02:06 | Progress Note ---
DATE: 02/19/2020 Nephrology Progress Note SUBJECTIVE: The patient is doing well today with no complaints. Sodium is still very difficult to raise with conservative treatments. I did initiate oral tolvaptan and stopped all IV fluids. PHYSICAL EXAMINATION: VITAL SIGNS: He is afebrile, pulse is 102, respiratory rate is 20, blood pressure is elevated at 171/71. GENERAL: Not in acute distress. Alert and oriented x3. Cooperative on examination. HEENT: Head; normocephalic, atraumatic. Eyes; pupils are equal, round, and reactive to light bilaterally. Extraocular movements intact bilaterally. Throat; no evidence of erythema or exudates in the posterior pharynx. Has poor dentition. NECK: Supple. Good range of motion. PULMONARY: Clear to auscultation bilaterally. No wheezing, no rales, no rhonchi, no crackles appreciated. CARDIOVASCULAR: Positive S1 and S2. No murmurs, rubs, or gallops appreciated. ABDOMEN: Soft, nondistended, and nontender to palpation. Bowel sounds present. MUSCULOSKELETAL: Strength is 5/5 throughout. No evidence of any muscle deficits on examination. LABORATORY DATA: Show CBC is stable. Chemistry; sodium is 130 after given tolvaptan. The rest of the chemistries are stable IMPRESSION: Hypovolemic, hypotonic, hyponatremia secondary to underlying hydrochlorothiazide, and underlying dehydration. PLAN: At this time, sodium levels were gradually not improving. They improved a little bit, but today the sodium was still low at 126. I stopped all IV fluids. Changed his volume restriction to regular. I added tolvaptan 15 mg p.o. x1. Repeat sodium 12 hours later when out 4 mEq/L at 1:30. At this time, we will get morning labs to see where the sodium is. If his sodium is improved, he is cleared for discharge from a renal standpoint, otherwise. MD CORINA Bryan/MODL /[id number]
[2020-02-20 04:00] VITALS: BP 137/55
[2020-02-20 05:17] LABS: BASOPHILS # (AUTO) 0.1 (0.0-0.1); BASOPHILS % 0.5 % (0.0-1.0); EOSINOPHILS % 0.2 % (0.0-6.0); HEMATOCRIT 35.1 % (38.2-49.6); HEMOGLOBIN 11.9 g/dL (14.0-18.0); LYMPHOCYTES # (AUTO) 1.6 (1.0-3.2); LYMPHOCYTES % 12.6 % (18.0-39.1); MEAN CORPUSCULAR HEMOGLOBIN 30.2 pg (28-32); MEAN CORPUSCULAR HGB CONC 33.9 g/dL (31-35); MEAN CORPUSCULAR VOLUME 89.1 fL (81-99); MONOCYTES # (AUTO) 0.9 (0.2-0.8); MONOCYTES % 7.3 % (4.4-11.3); NEUTROPHILS # (AUTO) 10.1 (2.1-6.9); NEUTROPHILS % 78.9 % (38.7-80.0); PLATELET COUNT 270 x10e3/uL (140-360); RED BLOOD COUNT 3.94 x10e6/uL (4.3-5.7); RED CELL DISTRIBUTION WIDTH 14.7 % (11.7-14.4)
[2020-02-20 06:06] LABS: ALANINE AMINOTRANSFERASE 12 IU/L (0-55); ALBUMIN 3.1 g/dL (3.5-5.0); ALBUMIN/GLOBULIN RATIO 0.9 (0.8-2.0); ALKALINE PHOSPHATASE 58 IU/L (40-150); ANION GAP 15.3 mmol/L (8-16); BLOOD UREA NITROGEN 11 mg/dL (7-26); BUN/CREATININE RATIO 18 (6-25); CALCIUM 8.7 mg/dL (8.4-10.2); CARBON DIOXIDE 24 mmol/L (22-29); CHLORIDE 98 mmol/L (98-107); CREATININE, SERUM 0.61 mg/dL (0.72-1.25); EST GLOMERULAR FILTRATION RATE > 60 ML/MIN (60-); GLUCOSE 102 mg/dL (74-118); POTASSIUM 4.3 mmol/L (3.5-5.1); SODIUM 133 mmol/L (136-145)
[2020-02-20] MEDS: ACETAMINOPHEN/CODEINE 300MG - 30MG TAB PO PRN (06:09)
[2020-02-20] MEDS ORDERED: CEFUROXIME250 MG PO (06:10)
[2020-02-20] MEDS ORDERED: AMLODIPINE BESY10 MG PO (06:10)
[2020-02-20] MEDS ORDERED: COZAAR100 MG PO (06:10)
[2020-02-20] MEDS: FAMOTIDINE 20 MG TAB PO SCH (07:30)
[2020-02-20 08:13] VITALS: BP 151/73
[2020-02-20 08:17] VITALS: BP 151/73
--- NOTE | 2020-02-20 08:30 | NUR ---
The pt.s morning sodium results were called to both the attending and the consulting dr's and discharge orders received. I have spoken with the daughter to advise of pending discharge.
[2020-02-20] MEDS: FLUTICASONE PROPIONATE NASAL SPRAY NS SCH (08:46)
[2020-02-20] MEDS: LOSARTAN POTASSIUM 100 MG TAB PO SCH (08:47)
[2020-02-20] MEDS: TIMOLOL MALEATE 0.5% OPTH DRP 5 ML BTL OP SCH (08:47)
[2020-02-20] MEDS: DOCUSATE SODIUM 100 MG CAP PO SCH (08:47)
[2020-02-20] MEDS ORDERED: AMLODIPINE BESYLATE 10 MG TAB PO SCH (09:00)
--- NOTE | 2020-02-20 09:12 | NUR ---
CM called and spoke with daughter Katelyn Wiggins [phone] and discussed discharge plan. Discussed IMM letter. She verbalized understanding. Signed copy placed in chart. Copy left at pt's bedside.
--- NOTE | 2020-02-20 09:30 | NUR ---
I called the pt's daughter and give her discharge information and stressed the need to follow up with his PCP.
[2020-02-20 11:14] VITALS: BP 141/65
--- NOTE | 2020-02-20 11:20 | NUR ---
The pt. was escorted to the discharge area and placed into the care of his family. The pt has in his possession prescriptions and discharge information which has been discussed with his daughter.
--- NOTE | 2020-02-21 02:17 | Progress Note ---
DATE: 02/20/2020 Nephrology Progress Note SUBJECTIVE: The patient was seen early this morning prior to being discharge. Sodium level improved to 133. OBJECTIVE: VITAL SIGNS: He is afebrile, normotensive. Respiratory rate is good. GENERAL: In no acute distress. Alert and oriented x3. He was cooperative on exam. HEENT: Head is normocephalic and atraumatic. Eyes, pupils are equal, round, and reactive to light bilaterally. Extraocular movements are intact bilaterally. Throat, no evidence of any erythema or exudates in the posterior pharynx. Has poor dentition. NECK: Supple. Good range of motion. PULMONARY: Clear to auscultation bilaterally. No wheezing, no rales, no rhonchi, no crackles appreciated. CARDIOVASCULAR: Positive S1 and S2. No murmurs, rubs, or gallops appreciated. GI: Abdomen is soft, distended, nontender to palpation. Bowel sounds are present. MUSCULOSKELETAL: Strength is 5/5 throughout. No evidence of any muscle deficits on examination. SKIN: Intact warm to touch. Good capillary refill. PSYCHIATRIC: Normal affect and mood. LABORATORY DATA: Sodium 133, rest of the electrolytes are stable. CBC noted. Microbiology showed E coli. Imaging studies are none. IMPRESSION: Hypovolemic, hypotonic, hyponatremia secondary to hydrochlorothiazide and underlying dehydration. PLAN: At this time, I recommend discontinuing hydrochlorothiazide on discharge. Sodium level was 133. He did tremendously well with oral tolvaptan. From a renal stand point, he can be discharged. No further work up needed. He could follow up as an outpatient in the next 1 to 2 weeks for repeat labs. This could be a component of SIADH, but workup needs to be further investigated as an outpatient. Otherwise he is doing well with no complaints. He is back to normal baseline. MD CORINA Bryan/MODL /[id number]
--- NOTE | 2020-02-21 07:32 | Discharge Summary ---
ADMISSION DIAGNOSES: Hyponatremia, hyperlipidemia, benign prostatic hypertrophy, urinary tract infection, present on admission, ambulatory dysfunction, glaucoma. DISCHARGE DIAGNOSES: Hyponatremia, hyperlipidemia, benign prostatic hypertrophy, urinary tract infection, present on admission, ambulatory dysfunction, glaucoma, Escherichia coli urinary tract infection, present on admission. HISTORY: GERD, hyperlipidemia, glaucoma, BPH, prostate cancer with radiation. SURGICAL HISTORY: Back surgery and right knee surgery. FAMILY HISTORY: Noncontributory. SOCIAL HISTORY: Noncontributory. HOSPITAL COURSE: An 80-year-old male admits with complaints of weakness for 2 weeks and hallucinations for 1 week per family report. He has a poor appetite, but denies nausea, vomiting, diarrhea. Family is unaware of any weight loss. The patient uses a rolling walker at home. He lives with his and the daughter currently lives with him as well. On admission, the patient's sodium was 121. Nephrology was consulted. IV fluids were started. EKG showed normal sinus rhythm. CT of the brain showed no acute abnormalities. Chest x-ray showed likely small left pleural effusion, left basilar opacity, most likely atelectasis. Urine culture came back positive for E. coli and he was started on Rocephin. After a few days of IV fluids and salt tabs as well as one dose of tolvaptan, the patient's sodium is now 133 and he is ready for discharge. He will follow up with primary care in 1 to 2 weeks. PT recommended home health. The patient's family refused due to COVID, but he has good family support at home and already has a walker as discussed earlier. At the time of discharge, vital signs stable, the patient is afebrile. The patient is feeling much better and ready to discharge home. Dictated by Chelsea Benjamin NP MD ALONSO Guerrero/MODL /[id number]
== END 2020-02-20 11:20 | disposition home or self-care (01) | DRG 641 ==
LOC: ER 09:00 → ERHOLD 10:11 → MED/SURG2 12:47 → OBSVTOIN 02-16 10:19
PROVIDERS: ADMIT Internal Medicine; ATTEND Internal Medicine
DX: E87.1 Hypo-osmolality and hyponatremia (principal); N39.0 Urinary tract infection, site not specified; E86.0 Dehydration; E86.1 Hypovolemia; K21.9 Gastro-esophageal reflux disease without esophagitis; E87.5 Hyperkalemia; N40.0 Benign prostatic hyperplasia without lower urinary tract symptoms; Z85.46 Personal history of malignant neoplasm of prostate; H40.9 Unspecified glaucoma; Z74.09 Other reduced mobility; B96.20 Unspecified Escherichia coli [E. coli] as the cause of diseases classified elsewhere; Z11.59 Encounter for screening for other viral diseases; T50.2X5A Adverse effect of carbonic-anhydrase inhibitors, benzothiadiazides and other diuretics, initial encounter
CPT/HCPCS: 36415; 70450; 71045; 80053; 81001; 82550; 82553; 83036; 83930; 83935; 84295; 84300; 84443; 84484; 84550; 85025; 87086; 87186; 93005; 96361; 97139; 99284; G0378; J0360; J0696; J2405; J7030; Q9967; U0002

== ENCOUNTER 2020-04-08 07:45 | Inpatient (IN) | payer MEDICARE ==
[~2020-04-08] VITALS: Ht 170.2 cm; Wt 75.7 kg
[~2020-04-08 07:45] MED LIST: ALENDRONATE SOD70 MG PO; ALLERGY RELIEF10 M4 PO; AMLODIPINE BESY10 MG PO; CEFUROXIME250 MG PO; COZAAR100 MG PO; DICLOFENAC SODI75 MG; FLOMAX0.4 MG PO; FLUTICASONE PRO16 GM INH; IBUPROFEN600 MG PO; MONTELUKAST SOD10 MG PO; OMEPRAZOLE40 MG; SIMVASTATIN40 MG PO; ULTRACET TABLE1 EACH PO
--- OUTSIDE RECORDS SUMMARY | 2020-04-08 08:46 | XMS REPORT | Continuity of Care Document ---
Author Author [facility] t Organization [facility] Address [address] [place] [id number] Phone Unavailable Care Team Providers Care Statistical Developer Name Role Phone CATRINA DUARTE Attphys Unavailable GERALD CATRINA Admphys Unavailable Problems This patient has no known problems. Allergies, Adverse Reactions, Alerts This patient has no known allergies or adverse reactions. Medications This patient has no known medications. Procedures This patient has no known procedures. Results Test Description Test Time Test Comments Results Result Comments Source CHEST SINGLE (PORTABLE) 2020-02-15 13:08:00 [place] [address] Patient Name: KAISER VELASQUEZ MR #: [id number] : 1940 Age/Sex: 80/M Req #: [id number] [facility] Physician: CATRINA DUARTE MD Ordered by: LAURA COLBERT DO Report #: [id number] Location: [facility]/SURG[facility] Room/Bed: [facility] Procedure: [id number] DX/CHEST SINGLE (PORTABLE) Exam Date: 02/15/20 Exam Time: 1234 REPORT STATUS: Signed EXAMINATION: CHEST SINGLE (PORTABLE) INDICATION: Weakness COMPARISON: Chest radiograph 02/15/2020 FINDINGS: LINES/TUBES:EKG leads overlie the chest. LUNGS:The lungs are moderately inflated. Left basilar opacity. PLEURA:No pleural effusion or pneumothorax. MEDIASTINUM:The cardiomediastinal silhouette appears normal in size and shape. BONES/SOFT TISSUES:No acute osseous injury. ABDOMEN:No free air under the diaphragm. IMPRESSION: Left basilar opacities, most likely subsegmental atelectasis. Signed by: Luisana Camarillo MD on 02/15/2020 1:08 PM Dictated By: LUISANA CAMARILLO MD 1308 Transcribed By: HUANG on 02/15/20 1308 COPY TO: LAURA COLBERT DO CHEST SINGLE (PORTABLE) 2020-02-15 11:28:00 [place] [address] Patient Name: KAISER VELASQUEZ MR #: [id number] : 1940 Age/Sex: 80/M Req #: [id number] Adm Physician: CATRINA DUARTE MD Ordered by: LAURA COLBERT DO Report #: [id number] Location: [facility] Room/Bed: [place] [address] Procedure: [id number] DX/CHEST SINGLE (PORTABLE) Exam Date: 02/15/20 Exam Time: 1042 REPORT STATUS: Signed EXAMINATION: CHEST SINGLE (PORTABLE) INDICATION: Weakness COMPARISON: None FINDINGS: LINES/TUBES:None LUNGS:The lungs are well-inflated. Left basilar opacity. PLEURA:Likely small left pleural effusion. MEDIASTINUM:The cardiomediastinal silhouette appears normal in size and shape. BONES/SOFT TISSUES:No acute osseous injury. ABDOMEN:No free air under the diaphragm. IMPRESSION: Likely small left pleural effusion. Left basilar opacity, most likely subsegmental atelectasis. Signed by: Luisana Camarillo MD on 02/15/2020 11:29 AM Dictated By: LUISANA CAMARILLO MD 28 Transcribed By: HUANG on 02/15/201128 COPY TO: LAURA COLBERT DO CT BRAIN WO 2020-02-15 09:57:00 [place] [address] Patient Name: KAISER VELASQUEZ MR #: [id number] : 1940 Age/Sex: 80/M Req #: [id number] Adm Physician: CATRINA DUARTE MD Ordered by: LAURA COLBERT DO Report #: [id number] Location: [facility] Room/Bed: [facility] Procedure: [id number] CT/CT BRAIN WO Exam Date: 02/15/20 Exam Time: 1037 REPORT STATUS: Signed Exam: Head CT without [...]
[2020-04-08 09:43] LABS: BASOPHILS % 0.3 % (0.0-1.0); EOSINOPHILS % 0.1 % (0.0-6.0); HEMATOCRIT 34.4 % (38.2-49.6); HEMOGLOBIN 11.5 g/dL (14.0-18.0); LYMPHOCYTES # (AUTO) 1.5 (1.0-3.2); MEAN CORPUSCULAR HEMOGLOBIN 28.1 pg (28-32); MEAN CORPUSCULAR HGB CONC 33.4 g/dL (31-35); MEAN CORPUSCULAR VOLUME 84.1 fL (81-99); MONOCYTES # (AUTO) 1.2 (0.2-0.8); MONOCYTES % 8.8 % (4.4-11.3); NEUTROPHILS # (AUTO) 10.8 (2.1-6.9); NEUTROPHILS % 79.3 % (38.7-80.0); PLATELET COUNT 352 x10e3/uL (140-360); RED BLOOD COUNT 4.09 x10e6/uL (4.3-5.7); RED CELL DISTRIBUTION WIDTH 13.5 % (11.7-14.4)
[2020-04-08 09:57] LABS: CLARITY,URINE CLEAR (CLEAR); COLOR,URINE YELLOW (YELLOW)
[2020-04-08 09:58] LABS: BILIRUBIN,URINE NEGATIVE (NEGATIVE); KETONES,URINE NEGATIVE (NEGATIVE); LEUKOCYTE ESTERASE ,URINE NEGATIVE (NEGATIVE); NITRITE,URINE NEGATIVE (NEGATIVE); PROTEIN,URINE DIPSTICK NEGATIVE (NEGATIVE); URINE UROBILINOGEN 1 mg/dL (0.2 - 1)
[2020-04-08 09:59] LABS: BACTERIA,URINE RARE /HPF; EPITHELIAL CELLS,URINE FEW /LPF
[2020-04-08 10:13] LABS: ALANINE AMINOTRANSFERASE 14 IU/L (0-55); ALBUMIN/GLOBULIN RATIO 0.8 (0.8-2.0); ALKALINE PHOSPHATASE 64 IU/L (40-150); AMYLASE 52 U/L (25-125); ANION GAP 10.8 mmol/L (8-16); BLOOD UREA NITROGEN 9 mg/dL (7-26); BUN/CREATININE RATIO 14 (6-25); CALCIUM 8.7 mg/dL (8.4-10.2); CARBON DIOXIDE 26 mmol/L (22-29); CHLORIDE 95 mmol/L (98-107); CREATINE KINASE 26 IU/L (30-200); CREATININE, SERUM 0.63 mg/dL (0.72-1.25); EST GLOMERULAR FILTRATION RATE > 60 ML/MIN (60-); GLUCOSE 104 mg/dL (74-118); LIPASE 21 U/L (8-78); POTASSIUM 3.8 mmol/L (3.5-5.1); SODIUM 128 mmol/L (136-145)
[2020-04-08] MEDS ORDERED: IOPAMIDOL 370 MG/ML 200 ML INFUS..BTL INJ ONE (10:29)
[2020-04-08] MEDS ORDERED: SODIUM CHLORIDE 0.9% 50ML 50 ML ONE (10:29)
--- NOTE | 2020-04-08 11:31 | Diagnostic Imaging Report ---
EXAM: CT Abdomen and Pelvis WITH intravenous contrast INDICATION: Abdominal pain COMPARISON: Chest radiograph earlier the same day TECHNIQUE: Abdomen and pelvis were scanned utilizing a multidetector helical scanner from the lung base to the pubic symphysis after administration of IV contrast. Coronal and sagittal reformations were obtained. Routine protocol was performed. Scan was performed during portal venous phase. IV CONTRAST: 100mL of Isovue 370 ORAL CONTRAST: Water RADIATION DOSE: Total DLP: 936 mGy*cm Dose modulation, iterative reconstruction, and/or weight based adjustment of the mA/kV was utilized to reduce the radiation dose to as low as reasonably achievable. FINDINGS: LOWER THORAX: 4.3 cm posterior left lower lobe consolidative opacity. Scattered additional nodules measure up to 11 mm at the left lower lobe, 6 mm at the right middle lobe, and 5 mm at the right lower lobe. Multifocal nodular soft tissue enhancement of the distal thoracic esophagus. HEPATOBILIARY: 4.1 cm cystic left liver lesion. Additional 1.2 cm adjacent hypodense lesion in the left liver (axial image 21) demonstrates peripheral enhancement. Additional hypodense lesions in the caudate lobe of the liver measure up to 1.3 cm. No biliary ductal dilation. Unremarkable gallbladder. SPLEEN: No splenomegaly. PANCREAS: No focal masses or ductal dilatation. ADRENALS: No adrenal nodules. KIDNEYS/URETERS: No hydronephrosis, stones, or solid mass lesions. PELVIC ORGANS/BLADDER: Left inguinal hernia containing much of the urinary bladder. PERITONEUM / RETROPERITONEUM: No free air or fluid. LYMPH NODES: Gastrohepatic lymph node measures up to 1.3 x 0.9 cm. Scattered retroperitoneal lymph nodes do not meet size criteria for lymphadenopathy. VESSELS: Moderate atherosclerotic calcifications of the nonaneurysmal abdominal aorta and major branches. GI TRACT: Diverticulosis without CT evidence of diverticulitis. Excluding the distal esophageal masslike wall thickening, no additional bowel wall thickening or bowel obstruction. BONES AND SOFT TISSUES: No acute osseous injury. No suspicious lytic or blastic lesions. Degenerative changes of the visualized spine, most notably at L5-S1. IMPRESSION: Distal thoracic esophageal masslike wall thickening with enhancement, concerning for malignancy. Recommend endoscopic evaluation. 4.3cm posterior left lower lobe consolidation and scattered bilateral pulmonary nodules. These may be infectious/inflammatory in the proper clinical setting however primary malignancy versus metastatic disease is not excluded. Recommend short interval 3 month follow-up with chest CT, PET/CT, or percutaneous sampling. 4.1 cm cystic liver lesion and additional 1.2 cm and 1.3 cm hypodense lesions with mild peripheral enhancement involving the left lobe and the caudate lobe. Recommend further evaluation with liver MRI. Left inguinal hernia containing the majority of the urinary bladder. Diverticulosis without CT evidence of diverticulitis. The above findings were discussed with Dr. Lauren on 04/08/2020 11:10 AM, who responded indicating that the communication was understood. Signed by: Phu Camarillo MD on 04/08/2020 11:28 AM
--- NOTE | 2020-04-08 11:41 | Emergency Department Note ---
History of Present Illnes History of Present Illness Chief Complaint: Abdominal Complaints History of Present Illness This is a 80 year old male Chief Complaint Comment PATIENT IN FROM HOME WITH COMPLAINTS OF EPIGASTRIC PAIN AND BURNING X SEVERAL MONTHS; STATES WAS SEEN HERE 2 WEEKS AGO FOR THE SAME. PATIENT HAS AN APPOINTMENT WITH GI SPECIALIST ON WEDNESDAY, BUT STATES "I CAN'T WAIT THAT LONG". PATIENT RATES PAIN 8/10, APPEARS IN NO DISTRESS, RESP EVEN AND NONLABORED. PATIENT HAS BEEN TAKING OMEPRAZOLE WITHOUT RELIEF. PATIENT REPORTS POOR APPETITE. . Historian: Patient, Family Member Arrival Mode: Car Onset (how long ago): day(s) (2) Location: EPIGASTRIC Quality: DULL Radiation: Denies non-radiation, Denies back, Denies neck, Denies extremity, Denies abdomen, Denies periumbilical, Denies flank, Denies proximal, Denies distal, Denies other Severity: moderate Onset quality: gradual Duration (how long): day(s) (3) Timing of current episode: constant Progression: waxing and waning Chronicity: new Context: Denies recent illness, Denies recent surgery, Denies recent immobilization, Denies recent travel, Denies trauma/injury, Denies new medications, Denies hx of DVT/PE, Denies non-compliance w/ medications, Denies other Relieving factors: none Exacerbating factors: none Treatments prior to arrival: none Past Medical/Family History Physician Review I have reviewed the patient's past medical and family history. Any updates have been documented here. Past Medical History Recent Fever: No Clinical Suspicion of Infectio: No New/Unexplained Change in Ment: No Past Medical History: GERD, Hyperlipedemia Other Medical History: bph gerd allergies sinus Past Surgical History: Knee Replacement, Back Surgery Other Surgery: knee sx esophageal stricture back sx Social History Smoking Cessation: Former smoker Counseling Performed: Yes Alcohol Use: None Any Illegal Drug Use: No Other Any Pre-Existing Lines (PICC,: No Review of Systems Review of Systems Constitutional: Reports no symptoms EENTM: Reports no symptoms Cardiovascular: Reports no symptoms Respiratory: Reports no symptoms Gastrointestinal: Reports as per HPI Genitourinary: Reports no symptoms Musculoskeletal: Reports no symptoms Integumentary: Reports no symptoms Neurological: Reports no symptoms Psychological: Reports no symptoms Endocrine: Reports no symptoms Hematological/Lymphatic: Reports no symptoms Physical Exam Related Data Allergies: Coded Allergies: No Known Allergies (Unverified , 04/08/20) Triage Vital Signs Vital Signs Date Time Temp Pulse Resp B/P (MAP) Pulse Ox O2 Delivery O2 Flow Rate FiO2 04/08/20 07:54 99.3 99 18 131/79 99 Room Air Vital signs reviewed: Yes Physical Exam CONSTITUTIONAL Constitutional: Present well-developed, Present well-nourished HENT HENT: Present normocephalic, Present atraumatic, Present oropharynx clear/moist, Present nose normal HENT L/R: Present left ext ear normal, Present right ext ear normal EYES Eyes: Reports PERRL, Reports conjunctivae normal NECK Neck: Present ROM normal PULMONARY Pulmonary: Present effort normal, Present breath sounds normal CARDIOVASCULAR Cardiovascular: Present regular rhythm, Present heart sounds normal, Present capillary refill normal, Present normal rate GASTROINTESTINAL Abdominal: Present soft, Present bowel sounds normal, Present tender (EPIGASTRIC) GENITOURINARY Genitourinary: Present exam deferred SKIN Skin: Present warm, Present dry MUSCULOSKELETAL Musculoskeletal: Present ROM normal NEUROLOGICAL Neurological: Present alert, Present oriented x 3, Present no gross motor or sensory deficits PSYCHOLOGICAL Psychological: Present mood/affect normal, Present judgement normal Results Laboratory Result Diagram: 04/08/20 0840 04/08/20 0840 Laboratory Laboratory Tests Test 04/08/20 08:40 White Blood Count 13.58 x10e3/uL (4.8-10.8) Red Blood Count 4.09 x10e6/uL (4.3-5.7) Hemoglobin 11.5 g/dL (14.0-18.0) Hematocrit 34.4 % (38.2-49.6) Mean Corpuscular Volume 84.1 fL (81-99) Mean Corpuscular Hemoglobin 28.1 pg (28-32) Mean Corpuscular Hemoglobin Concent 33.4 g/dL (31-35) Red Cell Distribution Width 13.5 % (11.7-14.4) Platelet Count 352 x10e3/uL (140-360) Neutrophils (%) (Auto) 79.3 % (38.7-80.0) Lymphocytes (%) (Auto) 11.0 % (18.0-39.1) Monocytes (%) (Auto) 8.8 % (4.4-11.3) Eosinophils (%) (Auto) 0.1 % (0.0-6.0) Basophils (%) (Auto) 0.3 % (0.0-1.0) Neutrophils # (Auto) 10.8 (2.1-6.9) Lymphocytes # (Auto) 1.5 (1.0-3.2) Monocytes # (Auto) 1.2 (0.2-0.8) Eosinophils # (Auto) 0.0 (0.0-0.4) Basophils # (Auto) 0.0 (0.0-0.1) Absolute Immature Granulocyte (auto 0.07 x10e3/uL (0-0.1) Urine Color Yellow (YELLOW) Urine Clarity Clear (CLEAR) Urine pH 6.5 (5 - 7) Urine Specific [place] 1.025 (1.010-1.025) Urine Protein Negative (NEGATIVE) Urine Glucose (UA) Negative (NEGATIVE) Urine Ketones Negative (NEGATIVE) Urine Blood Small (NEGATIVE) Urine Nitrite Negative (NEGATIVE) Urine Bilirubin Negative (NEGATIVE) Urine Urobilinogen 1 mg/dL (0.2 - 1) Urine Leukocyte Esterase Negative (NEGATIVE) Urine RBC 6-10 /HPF (0-5) Urine WBC 6-10 /HPF (0-5) Urine Epithelial Cells Few /LPF (NONE) Urine Bacteria Rare /HPF (NONE) Sodium Level 128 mmol/L (136-145) Potassium Level 3.8 mmol/L (3.5-5.1) Chloride Level 95 mmol/L (98-107) Carbon Dioxide Level 26 mmol/L (22-29) Anion Gap 10.8 mmol/L (8-16) Blood Urea Nitrogen 9 mg/dL (7-26) Creatinine 0.63 mg/dL (0.72-1.25) Estimat Glomerular Filtration Rate > 60 ML/MIN (60-) BUN/Creatinine Ratio 14 (6-25) Glucose Level 104 mg/dL (74-118) Calcium Level 8.7 mg/dL (8.4-10.2) Total Bilirubin 0.3 mg/dL (0.2-1.2) Aspartate Amino Transf (AST/SGOT) 19 IU/L (5-34) Alanine Aminotransferase (ALT/SGPT) 14 IU/L (0-55) Alkaline Phosphatase 64 IU/L (40-150) Creatine Kinase 26 IU/L (30-200) Creatine Kinase MB 1.10 ng/mL (0-5.0) Troponin I 0.016 ng/mL (0-0.300) Total Protein 6.8 g/dL (6.5-8.1) Albumin 3.0 g/dL (3.5-5.0) Globulin 3.8 g/dL (2.3-3.5) Albumin/Globulin Ratio 0.8 (0.8-2.0) Amylase Level 52 U/L (25-125) Lipase 21 U/L (8-78) Procedures 12 Lead ECG Interpretation ECG Interpretation : ECG: ECG 1 Foundry Technician: Interpreted by ED physician Date: Apr 08, 2020 Time: 08:33 Rhythm: sinus rhythm Rate: normal BPM: 98 QRS axis: normal ST segments normal: Yes T waves normal: Yes Clinical Impression: non-specific ECG Assessment & Plan Medical Decision Making MDM PUD GASTRITIS Reassessment Reassessment time: 11:40 Reassessment BETTER Assessment & Plan Final Impression: (1) Abdominal pain, acute, epigastric (2) Esophageal lesion Depart Disposition: ADMITTED Last Vital Signs Date Time Temp Pulse Resp B/P (MAP) Pulse Ox O2 Delivery O2 Flow Rate FiO2 04/08/20 09:02 97 26 159/89 99 Room Air 04/08/20 07:54 99.3 Home Meds Active Scripts Cefuroxime Axetil (CEFUROXIME) 250 Mg Tablet, 500 MG PO Q12H for 4 Days, TAB Prov:PANKAJ HAMMOND PROFESSOR OF PUBLIC ADMINISTRATION 02/20/20 Amlodipine Besylate (AMLODIPINE BESYLATE) 10 Mg Tablet, 10 MG PO DAILY, #30 TAB Prov:PANKAJ HAMMOND PROFESSOR OF PUBLIC ADMINISTRATION 02/20/20 Losartan Potassium (COZAAR) 100 Mg Tablet, 100 MG PO DAILY for 30 Days Prov:PANKAJ HAMMOND PROFESSOR OF PUBLIC ADMINISTRATION 02/20/20 Reported Medications Fluticasone Propionate (FLUTICASONE PROPIONATE) 16 Gm [place].susp 02/15/20 Cetirizine HCl (Allergy Relief) 10 Mg Capsule 02/15/20 Tramadol Hcl/Acetaminophen (ULTRACET TABLET) 1 Each Tablet, PO PRN for Mild Pain (1-3) or Fever>100.8 02/15/20 Montelukast Sodium (MONTELUKAST SODIUM) 10 Mg Tablet, 10 MG PO DAILY, #30 TAB 02/15/20 Omeprazole (OMEPRAZOLE) 40 Mg Capsule. 02/15/20 Simvastatin (SIMVASTATIN) 40 Mg Tablet, 40 MG PO 2100, #30 TAB 02/15/20 Tamsulosin Hcl* (FLOMAX*) 0.4 Mg Cap, 0.4 MG PO DAILY, #30 CAP 02/15/20 Alendronate Sodium (ALENDRONATE SODIUM) 70 Mg Tablet, PO 02/15/20 Medications in the ED Sodium Chloride 50 ml @ ud STK-MED ONCE .ROUTE ; Start 04/08/20 at 10:29; Stop 04/08/20 at 10:22; Status DC Iopamidol 74,000 mg STK-MED ONCE INJ ; Start 04/08/20 at 10:29; Stop 04/08/20 at 10:23; Status DC ANNE-MARIE SCHMIDT MD Apr 08, 2020 11:41
[2020-04-08] MEDS ORDERED: CEFTRIAXONE SOD 1 GM VIAL IV ONE (11:45)
[2020-04-08] MEDS ORDERED: CEFTRIAXONE SOD 1 GM VIAL IV SCH (11:45)
--- OUTSIDE RECORDS SUMMARY | 2020-04-08 11:54 | XMS REPORT | Continuity of Care Document ---
Author Author [facility] t Organization [facility] Address [address] [place] [id number] Phone Unavailable Care Team Providers Care Director Of Respiratory Therapy Name Role Phone ANNE-MARIE LAUREN Attphys Unavailable KILLCATRINA SHEN Attphys Unavailable KILLCATRINA SHEN Admphys Unavailable Problems This patient has no known problems. Allergies, Adverse Reactions, Alerts This patient has no known allergies or adverse reactions. Medications This patient has no known medications. Procedures This patient has no known procedures. Results Test Description Test Time Test Comments Results Result Comments Source CT ABDOMEN/PELVIS W 2020-04-08 11:10:00 [place] [address] Patient Name: KAISER VELASQUEZ MR #: [id number] : 1940 Age/Sex: 80/M Req #: [id number] [facility] Physician: Ordered by: ANNE-MARIE LAUREN MD Report #: [id number] Location: ER Room/Bed: Procedure: [id number] CT/CT ABDOMEN/PELVIS W Exam Date: 04/08/20 Exam Time: 1040 REPORT STATUS: Signed EXAM: CT Abdomen and Pelvis WITH intravenous contrast INDICATION: Abdominal pain COMPARISON: Chest radiograph earlier the same day TECHNIQUE: Abdomen and pelvis were scanned utilizing a multidetector helical scanner from the lung base to the pubic symp hysis after administration of IV contrast. Coronal and sagittal reformations were obtained. Routine protocol was performed. Scan was performed during portal venous phase. IV CONTRAST: 100mL of Isovue 370 ORAL CONTRAST: Water RADIATION DOSE: Total DLP: 936 mGy*cm Dose modulation, iterative reconstruction, and/or weight based adjustment of the mA/kV was utilized to reduce the radiation dose to as low as reasonably achievable. FINDINGS: LOWER THORAX: 4.3 cm posterior left lower lobe consolidative opacity. Scattered additional nodules measure up to 11 mm at the left lower lobe, 6 mm at the right middle lobe, and 5 mm at the right lower lobe. Multifocal nodular soft tissue enhancement of the distal thoracic esophagus. HEPATOBILIARY: 4.1 cm cystic left liver lesion. Additional 1.2 cm adjacent hypodense lesion in the left liver (axial image 21) demonstrates peripheral enhancement. Additional hypodense lesions in the caudate lobe of the liver jair sure up to 1.3 cm. No biliary ductal dilation. Unremarkable gallbladder. SPLEEN: No splenomegaly. PANCREAS: No focal masses or ductal dilatation. ADRENALS: No adrenal nodules. KIDNEYS/URETERS: No hydronephrosis, stones, or solid mass lesions. PELVIC ORGANS/BLADDER: Left inguinal hernia containing much of the urinary bladder. PERITONEUM / RETROPERITONEUM: No free air or fluid. LYMPH NODES: Gastrohepatic lymph node measures up to 1.3 x 0.9 cm. Scattered retroperitoneal lymph nodes do not meet size criteria for lymphadenopathy. VESSELS: Moderate atherosclerotic calcifications of the nonaneurysmal abdominal aorta and major branches. GI TRACT: Diverticulosis without CT evidence of diverticulitis. Excluding the distal esophageal masslike wall thickening, no additional bowel wall thickening or bowel obstruction. BONES AND SOFT TISSUES: No acute osseous injury. No suspicious lytic or blastic lesions. Degenerative changes of the visualized spine, most notably at L5-S1. IMPRESSION: Distal thoracic esophageal masslike wall thickening with enhancement, concerning for malignancy. Recommend endoscopic evaluation. 4.3cm posterior left lower lobe consolidation and scattered bilateral pulmonary nodules. These may be infectious/inflammatory in the proper clinical setting however primary malignancy versus metastatic disease is not excluded. Recommend short interval 3 month follow-up with chest CT, PET/CT, or percutaneous sampling. 4.1 cm cystic liver lesion and additional 1.2 cm and 1.3 cm hypodense lesions with mild peripheral enhancement involving the left lobe and the caudate lobe. Recommend further evaluation with liver MRI. Left inguinal hernia containing the majority of the urinary bladder. Diverticulosis without CT evidence of diverticulitis. The above findings were discussed with Dr. Lauren on 04/08/2020 11:10 AM, who responded indicating that the communication was understood. Signed by: Luisana Camarillo MD on 04/08/2020 11:28 AM Dictated By: LUISANA CAMARILLO MD 27 Transcribed By: HUANG on 04/08/201127 COPY TO: ANNE-MARIE LAUREN MD CHEST SINGLE (PORTABLE) 2020-02-15 13:08:00 [place] [address] Patient Name: KAISER VELASQUEZ MR #: [id number] : 1940 Age/Sex: 80/M Req #: [id number] Adm Physician: CATRINA DUARTE MD Ordered by: LAURA COLBERT DO Report #: [id number] Location: MED/SURG2 Room/Bed: [facility] Procedure: [id number] DX/CHEST SINGLE (PORTABLE) Exam Date: 02/15/20 Exam [...] MD 1308 Transcribed By: HUANG on 02/15/20 130 COPY TO: LAURA COLBERT DO CHEST SINGLE (PORTABLE) 2020-02-15 11:28:00 [place] [address] Patient Name: KAISER VELASQUEZ MR #: [id number] : 1940 Age/Sex: 80/M Req #: [id number] Adm Physician: CATRINA DUARTE MD Ordered by: LAURA COLBERT DO Report #: [id number] Location: [facility] Room/Bed: [place] [address] Procedure: [id number] DX/CHEST SINGLE (PORTABLE) Exam Date: 02/15/20 Exam [...] 11:29 AM Dictated By: LUISANA CAMARILLO MD Transcribed By: HUANG on 02/15/201128 COPY TO: LAURA COLBERT DO CT BRAIN WO 2020-02-15 09:57:00 [facility] [address] [place] [address] Patient Name: KAISER VELASQUEZ MR #: [id number] : 1940 [facility] 80[id number] Req #: [id number] Adm Physician: CATRINA DUARTE MD Ordered by: LAURA COLBERT DO Report #: [id number] Location: MED/SURG2 Room/Bed: [facility] Procedure: [id number] CT/CT BRAIN WO Exam Date: 02/15/20 Exam [...] 10:01 AM Dictated By: MYRIAM SWAIN MD 100 Transcribed By: HUANG on 02/15/201000 COPY TO: LAURA COLBERT,
[2020-04-08] MEDS: SODIUM CHLORIDE 0.9% 1000ML 1,000 ML IV SCH ×2 (12:40→21:02)
[2020-04-08] MEDS: CEFTRIAXONE SOD 1 GM/NS 50 ML 50 ML IV SCH (12:40)
[2020-04-08] MEDS: PANTOPRAZOLE 40 MG 10ML VIAL IV SCH (12:41)
[2020-04-08] MEDS: ONDANSETRON HCL INJ 2MG/ML 2ML 2 MG/ML VIAL IV PRN ×2 (12:41→21:03)
--- NOTE | 2020-04-08 13:12 | NUR ---
Nursing report called to Herber TAYLOR.
--- NOTE | 2020-04-08 13:35 | NUR ---
pt received to room 201. pt ambulating to bathroom with stand-by assist. no s/s distress. in stable condition.
[2020-04-08 15:21] VITALS: BP 144/82
[2020-04-08 15:24] VITALS: BP 144/73
[2020-04-08 15:28] VITALS: BP 144/73
[2020-04-08] MEDS ORDERED: PROTONIX20 MG PO (16:34)
[2020-04-08] MEDS ORDERED: TIMOLOL MALEATE5 M3 OP (16:41)
[2020-04-08] MEDS ORDERED: TRAVATAN Z5 ML OP (16:42)
[2020-04-08] MEDS ORDERED: METOPROLOL TARTRATE INJ 1 MG/ML VIAL IV PRN (18:30)
[2020-04-08] MEDS ORDERED: ACETAMINOPHEN 325 MG TAB PO PRN (18:30)
[2020-04-08] MEDS ORDERED: POLYETHYLENE GLYCOL 3350 17 GM PACK PO PRN (18:30)
[2020-04-08] MEDS ORDERED: TEMAZEPAM 15 MG CAP PO PRN (18:30)
--- NOTE | 2020-04-08 19:15 | NUR ---
BEDSIDE SHIFT REPORT RECEIVED. PATIENT IS RESTING IN BED, AAOX3. RESP EVEN AND UNLABORED. TELE IN PLACE. EDUCATED PT ABOUT FALL PRECAUTIONS. PT VERBALIZED UNDERSTANDING. CALL LIGHT WITH IN EASY REACH. INSTRUCTED PT TO USE CALL LIGHT FOR ALL THE NEEDS. BED IS LOW AND LOCKED. SIDE RAILS X2. BED ALARM IS ON. PT DENIES NEEDS AT THIS TIME.
[2020-04-08 20:00] VITALS: BP 143/83
[2020-04-08 20:29] LABS: BILIRUBIN,URINE NEGATIVE (NEGATIVE); CLARITY,URINE CLEAR (CLEAR); COLOR,URINE YELLOW (YELLOW); KETONES,URINE NEGATIVE (NEGATIVE); LEUKOCYTE ESTERASE ,URINE NEGATIVE (NEGATIVE); NITRITE,URINE NEGATIVE (NEGATIVE); PROTEIN,URINE DIPSTICK NEGATIVE (NEGATIVE); URINE UROBILINOGEN 1 mg/dL (0.2 - 1)
[2020-04-08 20:44] LABS: BACTERIA,URINE FEW /HPF
[2020-04-08] MEDS: MORPHINE SULFATE 2 MG/ML SYR 1ML IV PRN (21:02)
--- NOTE | 2020-04-08 21:35 | History and Physical ---
PRIMARY CARE PHYSICIAN: Dr. Jose Dahl. CONSULTING PHYSICIANS: 1. Dr. Jeffy Narvaez with Gastroenterology. 2. Dr. Cunha with Nephrology. CHIEF COMPLAINT: Epigastric pain. HISTORY OF PRESENT ILLNESS: The patient is an 80-year-old male, discharged from [facility] on 02/20/2020, for hyponatremia and E coli UTI and was admitted today with complaints of epigastric pain/burning, stating he is unable to wait until Wednesday for his Gastroenterology appointment. The pain was dull and rated 8/10 on a 0 to 10 pain scale in the emergency department with associated poor appetite and taking omeprazole without relief. The patient is currently seen in room 201 and [employer] used for Swedish interpretation at that time. PAST MEDICAL HISTORY: Gastroesophageal reflux disease, hyperlipidemia, BPH, glaucoma, prostate cancer with radiation. PAST SURGICAL HISTORY: Esophagus surgery 40 years ago. Back and right knee surgery. FAMILY HISTORY: The patient claims no family history of heart problems, stroke, cancer, or really anything else. SOCIAL HISTORY: The patient lives with his and daughter. He uses a rolling walker for ambulation. He admits to smoking about 40 years ago. Does not smoke now. History of drinking a small amount of beer. Denies any illicit drugs. ALLERGIES: NO KNOWN ALLERGIES. HOME MEDICATIONS: Irbesartan hydrochlorothiazide 300-12.5 mg tablet daily. REVIEW OF SYSTEMS: CONSTITUTIONAL: Denies any recent weight loss or weight gain. He denies fever or chills. No problems with ears, eyes, nose, throat, respiratory, genitourinary, psychiatric, integumentary, cardiovascular, musculoskeletal, endocrine, allergic/immunological, hematologic/lymphatic. GASTROINTESTINAL: As per history of present illness; now abdominal pain rated 8/10 on a 0-10 pain scale. The last bowel movement was today 04/08/2020 and "normal." NEUROLOGIC: Light headache. No dizziness. PHYSICAL EXAMINATION: VITAL SIGNS: Temperature 97.6, pulse 93, blood pressure 144/73, respirations 21, oxygen saturation 97% on room air. Height 5 feet 7 inches, weight 167 pounds, BMI 26.15. GENERAL: Supine, no acute distress. LUNGS: Clear to auscultation. Respiratory pattern even and unlabored. HEENT: EOMI. NECK: Supple. No lymphadenopathy, thyromegaly, or JVD. CARDIOVASCULAR: Regular rate and rhythm with no murmur. Normal saline infusing at 125 mL an hour into a peripheral IV. ABDOMEN: Bowel sounds positive. Mild abdominal pain to gentle palpation. Soft. EXTREMITIES: No pitting edema. No clubbing, cyanosis, or signs of DVT. NEUROLOGICAL: GCS 15. Nonfocal. LABORATORY DATA: WBC 13.58, hemoglobin 11.5, hematocrit 34.4, platelets 352, neutrophils 79.3. Sodium 128, potassium 3.8, chloride 95, CO2 of 26, anion gap 10.8, BUN 9, creatinine 0.63, estimated GFR greater than 60, glucose 104, calcium 8.7, total bilirubin 0.3, AST 19, ALT 14, alkaline phosphatase 64, creatine kinase 26. CK-MB 1.1, troponin I 0.016. Total protein 6.8, albumin 3, amylase 52, lipase 21. Urinalysis done today showed clear urine, pH 6.5, specific gravity 1.025, nitrates negative, leukocyte esterase negative, RBC 6-10, WBC 6-10, rare bacteria. Coronavirus PCR remains pending. Blood cultures x2 with results pending. IMAGING AND OTHER: A 12-lead EKG showed normal sinus rhythm with a heart rate of 98. CT of the abdomen and pelvis as follows; distal thoracic esophageal masslike wall thickening with enhancement, concerning for malignancy. Recommend endoscopic evaluation. 4.3 cm posterior left lower lobe consolidation and scattered bilateral pulmonary nodules. These may be infectious/inflammatory in the proper clinical setting. However, primary malignancy versus metastatic disease is not excluded. Recommend short interval three-month followup with chest CT scan, PET/CT, or percutaneous sampling. 4.1 cm cystic liver lesion and additional 1.2 cm and 1.3 cm hypodense lesions with mild peripheral enhancement involving the left lobe in the caudate lobe. Recommend further evaluation with liver MRI. Left inguinal hernia containing the majority of the urinary bladder. Diverticulosis without CT evidence of diverticulitis. ASSESSMENT AND PLAN: 1. Acute epigastric abdominal pain. Currently pain level is about 8/10 on a 0-10 pain scale. The patient is on Protonix. No known allergies. We will add morphine p.r.n. for pain. He is currently on a clear liquid diet. Gastroenterology consulted. 2. Distal thoracic esophageal masslike thickening/lesion. The patient likely needs esophagogastroduodenoscopy. We will await Gastroenterology recommendations. 3. Cystic liver lesion 4.1 cm in size. MRI of the liver has been recommended. We will await GI recommendations. 4. Diverticulosis without CT evidence of diverticulitis, afebrile. WBCs 13.5. The patient is currently on Rocephin. 5. Acute on chronic hyponatremia. Sodium level 128. The patient's sodium level was 121 when he was admitted on 02/16/2020 and the patient was followed by Dr. Cunha with Nephrology. At that time when he was discharged on 02/20/2020, his sodium level was 133. Nephrology consulted. 6. History of prostate cancer with radiation. 7. Possible acute urinary tract infection. Urinalysis was negative, but WBCs 13.5. We will await final urine culture and sensitivity results. 8. Gastroesophageal reflux disease/prophylaxis. Continue Protonix. Encourage ambulation with rolling walker. We will ask the nursing get patient out of bed. Hold off on physical therapy order until we see if it is needed. Inpatient, billing code [id number]. Time spent 60 minutes. Dictated by Regan Garvin NP MD CEDRIC Guerrero/ASAL /[id number]
[2020-04-08] MEDS: TRAVOPROST(OPTH) 2.5 ML BTL OP SCH (21:38)
[2020-04-08] MEDS: SIMVASTATIN 40 MG TAB PO SCH (21:44)
[2020-04-08] MEDS: MONTELUKAST SODIUM 10 MG TAB PO SCH (21:44)
[2020-04-08 22:10] VITALS: BP 143/83
[2020-04-09] VITALS (8 sets, daily range): BP systolic 123–165; BP diastolic 53–81
[2020-04-09 05:14] LABS: BASOPHILS % 0.3 % (0.0-1.0); EOSINOPHILS % 0.2 % (0.0-6.0); HEMATOCRIT 33.3 % (38.2-49.6); HEMOGLOBIN 11.3 g/dL (14.0-18.0); LYMPHOCYTES # (AUTO) 1.4 (1.0-3.2); LYMPHOCYTES % 11.2 % (18.0-39.1); MEAN CORPUSCULAR HEMOGLOBIN 29.1 pg (28-32); MEAN CORPUSCULAR HGB CONC 33.9 g/dL (31-35); MEAN CORPUSCULAR VOLUME 85.8 fL (81-99); MONOCYTES % 8.4 % (4.4-11.3); NEUTROPHILS # (AUTO) 9.7 (2.1-6.9); NEUTROPHILS % 79.2 % (38.7-80.0); PLATELET COUNT 285 x10e3/uL (140-360); RED BLOOD COUNT 3.88 x10e6/uL (4.3-5.7); RED CELL DISTRIBUTION WIDTH 13.4 % (11.7-14.4)
[2020-04-09 05:37] LABS: ANION GAP 12.9 mmol/L (8-16); BLOOD UREA NITROGEN 5 mg/dL (7-26); BUN/CREATININE RATIO 8 (6-25); CALCIUM 8.3 mg/dL (8.4-10.2); CARBON DIOXIDE 23 mmol/L (22-29); CHLORIDE 97 mmol/L (98-107); CREATININE, SERUM 0.59 mg/dL (0.72-1.25); EST GLOMERULAR FILTRATION RATE > 60 ML/MIN (60-); GLUCOSE 92 mg/dL (74-118); POTASSIUM 3.9 mmol/L (3.5-5.1); SODIUM 129 mmol/L (136-145)
[2020-04-09 05:57] LABS: CHOL/HDL RATIO 4.1 (3.9-4.7); MAGNESIUM 1.9 MG/DL (1.3-2.1); PHOSPHORUS 3.1 MG/DL (2.3-4.7)
--- NOTE | 2020-04-09 06:23 | NUR ---
SPOKE TO DR NERI ABOUT CONSULT.
[2020-04-09] MEDS: MORPHINE SULFATE 2 MG/ML SYR 1ML IV PRN (08:58)
[2020-04-09] MEDS: PANTOPRAZOLE 40 MG 10ML VIAL IV SCH (10:00)
[2020-04-09] MEDS: FLUTICASONE PROPIONATE NASAL SPRAY NS SCH ×2 (10:00→17:13)
[2020-04-09] MEDS: DOCUSATE SODIUM 100 MG CAP PO SCH ×2 (10:00→15:31)
[2020-04-09] MEDS: TIMOLOL MALEATE 0.5% OPTH DRP 5 ML BTL OP SCH ×2 (10:00→17:13)
[2020-04-09] MEDS: TAMSULOSIN HCL 0.4 MG CAP PO SCH (10:00)
[2020-04-09] MEDS ORDERED: SODIUM CHLORIDE 0.9% 50ML 50 ML ONE (13:33)
[2020-04-09] MEDS ORDERED: GADOBENATE DIMEGLUMINE 1 ML IV ONE (13:34)
[2020-04-09] MEDS ORDERED: MORPHINE SULFATE 2 MG/ML SYR 1ML IV PRN (14:15)
[2020-04-09] MEDS: CEFTRIAXONE SOD 1 GM/NS 50 ML 50 ML IV SCH (14:41)
--- NOTE | 2020-04-09 16:37 | Diagnostic Imaging Report ---
TECHNIQUE: MRI of the abdomen WITHOUT and WITH intravenous contrast. INDICATION: ^liver lesions. COMPARISON: CT from 04/08/2020. FINDINGS: Evaluation is suboptimal due to respiratory motion artifact, especially on the post contrast imaging. LOWER THORAX: The lower esophagus is partially visualized a multinodular. This measures at least up to 11 cm in length. There is a broad-based heterogeneous opacity of the left lower lobe. LIVER: A cyst in segment II measures 2.6 cm x 4.5 cm x 4.1 cm and has a few thin internal septations. A simple cyst segment III measures 0.9 cm. A mass in the caudate lobe measures 3.2 x 2.1 cm and is intermediate intensity on T2-weighted imaging. BILIARY: Gallbladder is unremarkable. No biliary ductal dilatation or filling defect. SPLEEN: No splenomegaly. PANCREAS: No focal masses or ductal dilatation. ADRENALS: No adrenal nodules. KIDNEYS/URETERS: No hydronephrosis or solid mass lesions. Bilateral parapelvic simple renal cysts. No routine follow-up imaging is recommended. PERITONEUM/RETROPERITONEUM: No free fluid. LYMPH NODES: There are prominent lymph nodes in a hiatal hernia which measure up to 1 cm in short axis dimension. Prominent but nonenlarged left retroperitoneal lymph nodes measure up to 0.7 cm in short axis dimension. VESSELS: Unremarkable. GI TRACT: No distention or wall thickening. Diverticulosis is scattered throughout the colon but worse in the sigmoid and left colon where it is marked. 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 IMPRESSION: 1. The post contrast imaging is markedly suboptimal as are several other sequences due to respiratory motion artifact. However, the T2 appearance of the 3.2 cm mass in the caudate lobe is concerning for metastasis. 2. There is a mass in the esophagus which is concerning for esophageal carcinoma as well as prominent comparison esophageal lymph nodes which are concerning for metastases. 3. Left retroperitoneal lymph nodes are indeterminate. 4. There is a heterogeneous, nonspecific, broad-based opacity of the left lower lobe. This could be due to infection in the appropriate clinical setting. Signed by: Sebastian Lofton JR, MD on 04/09/2020 4:34 PM
--- NOTE | 2020-04-09 19:05 | NUR ---
Bedside shift report received from morning nurse. Pt alert and oriented to name, lying in bed HOB 45 degrees. Denies pain at this time. Call light within reach.
--- NOTE | 2020-04-09 20:11 | NUR ---
Dr. Nunez rounded, ordered EGD for tomorrow and NPO after midnight, spoke with Patient regarding EGD, no further concerns.
[2020-04-09] MEDS: SIMVASTATIN 40 MG TAB PO SCH (20:48)
[2020-04-09] MEDS: MONTELUKAST SODIUM 10 MG TAB PO SCH (20:48)
[2020-04-09] MEDS: TRAVOPROST(OPTH) 2.5 ML BTL OP SCH (20:48)
[2020-04-09] MEDS ORDERED: [UNRECOGNIZED DRUG - REMARK] PO SCH (21:00)
--- NOTE | 2020-04-09 21:00 | Consultation ---
DATE OF CONSULTATION: 04/09/2020 HISTORY OF PRESENT ILLNESS: This is an 80-year-old, who was admitted to the hospital because of abdominal pain in the epigastric area, described as burning in nature, about 5/10 in intensity, along with decrease in appetite. He has been taking omeprazole at home without relief. He had a CAT scan of the abdomen and pelvis on admissions, which shows thickening in the lower esophagus, but also 4.2 cm left lower lobe consolidation and bilateral pulmonary nodules and 1 cm cystic lesion in the liver. He had an MRI of the abdomen, which again shows a mass in the esophagus concerning for possible cancer, retroperitoneal lymph node. He is somewhat anemic with hemoglobin is running about 11.3, sodium is low at 129, and liver enzymes are normal. PAST MEDICAL HISTORY: Significant for history of reflux, hyperlipidemia, BPH, glaucoma, prostate cancer with radiation, and has supposedly had some kind of surgery in esophagus 40 years ago. ALLERGIES: NONE. SOCIAL HISTORY: Smoking for 40 years. Does not smoke now. Drinks socially. FAMILY HISTORY: Noncontributory. MEDICATIONS: At home including irbesartan. REVIEW OF SYSTEMS: Denies any chest pain or shortness of breath. Denies any dysphagia or odynophagia. Denies any dysuria, hematuria, or any kind of syncopal episode. PHYSICAL EXAMINATION: GENERAL: Awake, alert, appears to be stable. VITAL SIGNS: Afebrile currently. HEAD, EYES, EARS, NOSE AND THROAT: Normocephalic and atraumatic. Sclerae are clear. NECK: Supple. HEART: Regular. ABDOMEN: Soft. There is no distention at this point, it is nontender. EXTREMITIES: No clubbing. LABORATORY VALUES: BUN of 6, creatinine of 0.59. Liver enzymes appear to be normal. WBC of 12.28, hemoglobin 11.3, hematocrit of 33.3. COVID is still pending. Sodium 129. CAT scan and MRIs as before. ASSESSMENT: 1. Abdominal pain. The patient has a possibility of esophageal mass. 2. History of reflux and gastroesophageal reflux disease. RECOMMENDATION: Continue current care at this point. We will proceed with EGD for further evaluation tomorrow and follow labs clinically. MD LEO Bliss/MODL /[id number] cc: Jose Dahl MD
[2020-04-09] MEDS: TRAMADOL/APAP 37.5MG-325MG TAB PO PRN (21:11)
[2020-04-10] VITALS: BP 111/53
--- NOTE | 2020-04-10 02:01 | Consultation ---
DATE OF CONSULTATION: 04/09/2020 Nephrology Consultation CHIEF COMPLAINT: Acute kidney injury, abdominal pain, nausea, and vomiting. HISTORY OF PRESENT ILLNESS: This is an 80-year-old male with known history of chronic hyponatremia with multiple comorbidities, comes in with similar findings of dizziness, needing further evaluation and management. The patient's sodium level seems to be much improved compared to the past. The patient is seen and evaluated at bedside on the medical floor, currently doing well with no other issues at this time. REVIEW OF SYSTEMS: Pertinent positives: Generalized and weakness fatigue. The rest of 14-point review of systems have been reviewed with the patient and are negative. ALLERGIES: NO KNOWN DRUG ALLERGIES. HOME MEDICATIONS: Alendronate, Ghazala, fluticasone, Singulair, simvastatin, tamsulosin, Timolol , tramadol, and . PAST MEDICAL HISTORY: Hypertension, osteoporosis, hypercalcemia, and . PHYSICAL EXAMINATION: GENERAL: Not in acute distress. Alert and oriented x3. Cooperative on examination. HEENT: Normocephalic. Atraumatic. Eyes; pupils are reactive to light bilaterally. Extraocular movements intact bilaterally. Throat, no evidence of any erythema or exudates in the posterior pharynx. Has poor dentition NECK: Supple. Good range of motion. PULMONARY: Clear to auscultation bilaterally. No wheezing, no rales, no rhonchi. No crackles appreciated. CARDIOVASCULAR: Positive S1 and S2. No murmurs, rubs, or gallops appreciated. ABDOMEN: Soft, nondistended, nontender to palpation. Bowel sounds present. IMPRESSION: 1. Right foot wound infection, needing further evaluation and management. 2. Hypertension. PLAN: Sodium levels 128 on admission, now 129. Currently very stable with no complaints. Okay to continue with IV fluids for now. LFTs within normal range. Once the patient has been approved by Cardiology, the patient is to be discharged. MD CORINA Bryan/BILLIE /[id number]
[2020-04-10 03:54] VITALS: BP 149/80
[2020-04-10] MEDS ORDERED: ALENDRONATE SODIUM 70 MG TAB PO SCH (06:00)
[2020-04-10 06:16] LABS: BASOPHILS % 0.3 % (0.0-1.0); EOSINOPHILS % 0.3 % (0.0-6.0); HEMATOCRIT 31.3 % (38.2-49.6); HEMOGLOBIN 10.8 g/dL (14.0-18.0); LYMPHOCYTES # (AUTO) 1.7 (1.0-3.2); LYMPHOCYTES % 14.5 % (18.0-39.1); MEAN CORPUSCULAR HEMOGLOBIN 30.2 pg (28-32); MEAN CORPUSCULAR HGB CONC 34.5 g/dL (31-35); MEAN CORPUSCULAR VOLUME 87.4 fL (81-99); MONOCYTES # (AUTO) 1.1 (0.2-0.8); MONOCYTES % 8.8 % (4.4-11.3); NEUTROPHILS % 75.5 % (38.7-80.0); PLATELET COUNT 291 x10e3/uL (140-360); RED BLOOD COUNT 3.58 x10e6/uL (4.3-5.7); RED CELL DISTRIBUTION WIDTH 13.8 % (11.7-14.4)
[2020-04-10 06:30] LABS: ANION GAP 13.7 mmol/L (8-16); BLOOD UREA NITROGEN 6 mg/dL (7-26); BUN/CREATININE RATIO 10 (6-25); CALCIUM 8.5 mg/dL (8.4-10.2); CARBON DIOXIDE 24 mmol/L (22-29); CHLORIDE 97 mmol/L (98-107); EST GLOMERULAR FILTRATION RATE > 60 ML/MIN (60-); GLUCOSE 80 mg/dL (74-118); POTASSIUM 3.7 mmol/L (3.5-5.1); SODIUM 131 mmol/L (136-145)
--- NOTE | 2020-04-10 06:32 | NUR ---
RECEIVED BEDSIDE SHIFT REPORT FROM OFF GOING NURSE. PATIENT IS RESTING IN BED, NO ACUTE DISTRESS NOTED. CALL LIGHT WITHIN REACH. BED IN THE LOWEST POSITION.
[2020-04-10 07:50] VITALS: BP 153/81
[2020-04-10] MEDS: FLUTICASONE PROPIONATE NASAL SPRAY NS SCH ×2 (08:32→16:00)
[2020-04-10] MEDS: TIMOLOL MALEATE 0.5% OPTH DRP 5 ML BTL OP SCH ×2 (08:32→16:00)
[2020-04-10] MEDS: PANTOPRAZOLE 40 MG 10ML VIAL IV SCH (08:32)
[2020-04-10] MEDS: ONDANSETRON HCL INJ 2MG/ML 2ML 2 MG/ML VIAL IV PRN (08:46)
[2020-04-10] MEDS: DOCUSATE SODIUM 100 MG CAP PO SCH ×2 (09:00→16:00)
[2020-04-10 09:13] VITALS: BP 153/81
[2020-04-10] MEDS ORDERED: ULTRACET TABLE1 EACH PO (10:48)
[2020-04-10] MEDS ORDERED: PROTONIX20 MG PO (10:50)
--- NOTE | 2020-04-10 11:06 | NUR ---
ATTEMPTED TO START IV ON PATIENT X4 BY 2 DIFFERENT STAFF PERSONNEL. UNSUCCESSFUL, NOTIFIED BEATRICE IN OR OF SITUATION.
--- NOTE | 2020-04-10 11:11 | Diagnostic Imaging Report ---
TECHNIQUE: Frontal view of the chest. INDICATION: ^r/o pna ^[id number] ^[id number] COMPARISON: X-ray dated 02/15/[address] dated 04/08/2020 DISCUSSION: Limited evaluation due to portable technique. Lines and hardware: Overlying EKG leads are noted. Heart and mediastinum: Cardiomediastinal silhouette is mildly enlarged, stable. Lungs and pleura: Similar appearance of left hemidiaphragm elevation with patchy left basilar opacities and blunting of the left costophrenic angle. Right lung is clear. Negative for pneumothorax. Soft tissues and bones: No acute abnormality. IMPRESSION: Stable exam demonstrate left basilar opacities with blunting of the left costophrenic angle. Findings could relate to effusion/atelectasis. Superimposed infectious process difficult to exclude. Signed by: Mario Cortés MD on 04/10/2020 11:07 AM
[2020-04-10 11:24] VITALS: BP 160/77
--- NOTE | 2020-04-10 11:37 | NUR ---
PATIENT OFF UNIT FOR EGD AT THIS TIME.
--- NOTE | 2020-04-10 12:34 | NUR ---
PATIENT BACK TO UNIT AT THIS TIME.
[2020-04-10] MEDS: CEFTRIAXONE SOD 1 GM/NS 50 ML 50 ML IV SCH (12:43)
[2020-04-10] MEDS: TAMSULOSIN HCL 0.4 MG CAP PO SCH (12:43)
--- NOTE | 2020-04-10 13:00 | NUR ---
Spoke to pt at bedside along with bedside RN. Explained need to transfer to [place] for EUS. Pt is agreeable. Choice letter signed and placed on chart.
--- NOTE | 2020-04-10 13:16 | NUR ---
CM called [facility] transfer center [phone] [address] transfer to [facility]. Spoke to Kerry. She will call with bed once available. Faxed facesheet and COVID results to [phone], as requested.
--- NOTE | 2020-04-10 15:11 | NUR ---
Received call from transfer center. now requesting clinical be sent. Clinical faxed.
[2020-04-10] MEDS: TRAMADOL/APAP 37.5MG-325MG TAB PO PRN (15:20)
[2020-04-10 15:33] VITALS: BP 104/89
--- NOTE | 2020-04-10 16:41 | NUR ---
Called and spoke to transfer center. States they are waiting to hear back from GI . Will call nurses station with bed once available. MOT initiated and placed in nurses station.
--- NOTE | 2020-04-10 16:55 | NUR ---
CM SPOKE WIT [facility] IN IMAGING AND REQUEST THEY MAKE CD OF ALL OF PT'S IMAGING TO GO IN TRANSFER PACKET WITH PT
--- NOTE | 2020-04-10 17:20 | NUR ---
CALLED REPORT TO BRANDON DAO @ [facility] AT THIS TIME.
--- NOTE | 2020-04-10 18:58 | NUR ---
Pt D/C'd via stretcher by EMS to [facility]. D/C'd instructions given to EMS. Pt alert and oriented. Denies pain at this time, no acute distress noted. Pt understands transfer and POC.
[2020-04-10] MEDS ORDERED: PROPOFOL IV EMULSION 10 MG/ML 20 ML VIAL ONE (19:23)
[2020-04-10] MEDS ORDERED: LIDOCAINE HCL 2% LOCAL INJ 5 ML SDV VIAL INJ ONE (19:23)
--- NOTE | 2020-04-11 02:06 | Progress Note ---
DATE: 04/10/2020 Nephrology Progress Note SUBJECTIVE: The patient doing well today with no complaints. He is in the process of being discharged today. OBJECTIVE: VITAL SIGNS: Afebrile. Normotensive. Respiratory rate is good. GENERAL: Not in acute distress. Alert and oriented x3. Cooperative on examination. HEENT: Head is normocephalic and atraumatic. PULMONARY: : Clear to auscultation bilaterally. No wheezing, no rales, no rhonchi. No crackles appreciated. CARDIOVASCULAR: Positive S1 and S2. No murmurs, rubs, or gallops appreciated. ABDOMEN: Soft, nondistended, nontender to palpation. Bowel sounds present. MUSCULOSKELETAL: Strength 5/5 throughout. LABORATORY DATA: Show CBC, white count 11, hemoglobin 10.1, hematocrit 31, platelets of 201. His sodium was 131, potassium 3.7 . Blood culture, no growth to date. Urine cultures, no growth. IMAGING STUDIES: Nothing new. IMPRESSION: 1. Hyponatremia. 2. Hypertension. PLAN: At this time, sodium level of 131. The patient's sodium is 131 and stable, cleared for discharge. MD CORINA Bryan/MODL /[id number]
--- NOTE | 2020-04-11 06:49 | Discharge Summary ---
ADMISSION DIAGNOSES: 1. Acute epigastric abdominal pain. 2. Distal thoracic esophageal masslike thickening/lesion. 3. Cystic liver lesion. 4. Diverticulosis without evidence of diverticulitis. 5. [id number] hyponatremia. 6. History of prostate cancer with radiation. 7. Acute urinary tract infection, present on admission. 8. Gastroesophageal reflux disease. DISCHARGE DIAGNOSES: 1. Acute epigastric abdominal pain. 2. Distal thoracic esophageal masslike thickening/lesion. 3. Cystic liver lesion. 4. Diverticulosis without evidence of diverticulitis. 5. Cqvkt-vv-[id number] hyponatremia. 6. History of prostate cancer with radiation. 7. Acute urinary tract infection, present on admission. 8. Gastroesophageal reflux disease. 9. Gastritis and hiatal hernia. HISTORY: GERD, hyperlipidemia, BPH, glaucoma, and prostate cancer with radiation. 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 FAMILY HISTORY: Noncontributory. SOCIAL HISTORY: The patient admits to smoking about 40 years ago, although he does not smoke now. He denies illicit drug use. He has a history of drinking a small amount of beer, but denies alcoholism. He lives with his and daughter and uses a rolling walker for ambulation. HOSPITAL COURSE: 80-year-old male discharged on 02/20/2020 for hyponatremia and E coli, UTI, from [facility], now admits with complaints of epigastric pain and burning, stating that he is unable to wait for his GI appointment on Wednesday. The pain was dull and rated 8/10 with associated poor appetite and without relief using Prilosec. On admission, CT of the abdomen and pelvis was done, which showed distal thoracic esophageal masslike wall thickening with enhancement concerning for malignancy. A 4.3 cm posterior left lower lobe consolidation and scattered bilateral pulmonary nodules. A 4.1 cm liver lesion and additional 1.2 cm and 1.3 cm hypodense lesions with mild peripheral enhancement involving the left lobe and caudate lobe, left inguinal hernia containing majority of urinary bladder. Follow up MRI was done of the abdomen which showed T2 appearance of the 3.2 cm mass in the caudate lobe is concerning for metastases, mass in the esophagus, which is concerning for esophageal carcinoma as well as prominent esophageal lymph nodes which are concerning for metastases. Left retroperitoneal lymph nodes are indeterminate. Initially, the patient's UA showed a WBC of 6.10, but later in the day, the UA showed no WBCs. Sodium level was 128 on admission, which is improved from his last admission. No medications were given and the sodium level slowly trended up to 131 at time of discharge. The patient was initially started on antibiotics for presumed UTI. At time of transfer, the preliminary discharge is negative, but we are still pending the final culture. The patient was taken for an EGD per Dr. Nunez. EGD found hiatal hernia and gastritis. He also found a large ulcerated mass noted in the lower 3rd of the esophagus extending into the cardia of the stomach. Per GI recommendation, the patient will transfer to [facility] for an EUS which could not be performed at as there is no equipment. The patient and family understand the reason for transfer and accept. He will discharge to [place] for further testing per GI. AFB testing does show malignancy, then the plan is for transfer to the [facility] for resection. Dictated by Chelsea Benjamin NP MD ALONSO Guerrero/MODL /[id number]
== END 2020-04-10 19:01 | disposition short-term general hospital (02) | DRG 375 ==
LOC: ER 08:15 → ERHOLD 11:44 → MED/SURG2 13:50
PROVIDERS: ADMIT Internal Medicine; ATTEND Internal Medicine
PROC: 0DB48ZX Excision of Esophagogastric Junction, Via Natural or Artificial Opening Endoscopic, Diagnostic (ICD-10-PCS; principal; 2020-04-10 12:00)
DX: C15.5 Malignant neoplasm of lower third of esophagus (principal); E87.1 Hypo-osmolality and hyponatremia; N39.0 Urinary tract infection, site not specified; C77.1 Secondary and unspecified malignant neoplasm of intrathoracic lymph nodes; K21.9 Gastro-esophageal reflux disease without esophagitis; E78.5 Hyperlipidemia, unspecified; N40.0 Benign prostatic hyperplasia without lower urinary tract symptoms; Z87.891 Personal history of nicotine dependence; Z85.46 Personal history of malignant neoplasm of prostate; K76.9 Liver disease, unspecified; R91.8 Other nonspecific abnormal finding of lung field; K29.70 Gastritis, unspecified, without bleeding; K44.9 Diaphragmatic hernia without obstruction or gangrene; Z85.01 Personal history of malignant neoplasm of esophagus; Z11.59 Encounter for screening for other viral diseases
CPT/HCPCS: 36415; 43239; 71045; 74177; 74183; 80048; 80053; 80061; 81001; 82150; 82550; 82553; 83690; 83735; 84100; 84484; 85025; 87040; 87086; 88304; 88305; 88312; 88342; 93005; 99285; J0696; J2001; J2270; J2405; J7030; Q9967